=== PATIENT | male | born 1950 | race Caucasian/White ===

== ENCOUNTER 2017-01-06 18:08 | Inpatient (IN) | payer OTHER, MEDICAID ==
[~2017-01-06] VITALS: Ht 170.2 cm; Wt 86.6 kg
[~2017-01-06 18:08] MED LIST: IOHEXOL-300 100 ML BOTTLE ONE; SODIUM CHLORIDE 0.9% 10ML VIAL ONE
[2017-01-06 19:37] LABS: HEMATOCRIT. 35.6 % (42.0-52.0); HEMOGLOBIN. 11.1 g/dL (14.0-18.0); MEAN CORPUSCULAR HEMOGLOBIN 26.2 pg (28.0-32.0); MEAN CORPUSCULAR HGB CONC 31.1 g/dL (31.0-37.0); MEAN CORPUSCULAR VOLUME 84.3 fL (80.0-94.0); MEAN PLATELET VOLUME 10.7 fl (7.4-10.4); PLATELET 203 x1000/uL (130-400); RED BLOOD CELL COUNT 4.23 mill/uL (4.7-6.1); RED CELL DISTRIBUTION WIDTH 17.2 % (11.6-14.6); WHITE BLOOD COUNT 10.2 x1000/uL (4.5-11.0)
[2017-01-06 19:38] LABS: DIFFERENTIAL COMMENT 1
[2017-01-06 19:43] LABS: ALBUMIN 3.7 g/dL (3.4-5.0); ANION GAP 18; CARBON DIOXIDE 21 mEq/L (21-32); CHLORIDE 104 mEq/L (98-107); INDEX HEMOLYSI 1 (1-3); INDEX ICTERIC 1 (1-4); INDEX LIPEMIC 1 (1-3); INR 2.7; PARTIAL THROMBOPLASTIN TIME 32.4 sec (24.0-34.0); PROTHROMBIN TIME 27.9 sec; UREA NITROGEN BLOOD 42 mg/dL (7-21)
[2017-01-06 19:51] LABS: ALANINE AMINOTRANSFERASE 126 IU/L (13-61); NT PRO B-TYPE NATRIURETIC PEP 7020 pg/mL (5-125); eGFR 47 mL/min (>60)
[2017-01-06 19:54] LABS: LACTIC ACID 4.5 mmol/L (0.4-2.0); TROPONIN I 0.44 ng/mL (0.00-0.04)
[2017-01-06] MEDS ORDERED: SODIUM CHLORIDE 0.9% 1,000 ML IV ONE (20:06)
[2017-01-06] MEDS ORDERED: PIPERACILLIN/TAZ 3.375G PREMIX 50 ML IV ONE (20:15)
[2017-01-06] MEDS ORDERED: ASPIRIN 325MG EC TABLET PO ONE (20:15)
[2017-01-06] MEDS ORDERED: VANCOMYCIN 1 G PREMIX 200 ML IV SCH (20:15)
[2017-01-06 20:19] LABS: PLATELET ESTIMATE NORMAL
[2017-01-06 20:28] LABS: BG CARBOXYHEMOGLOBIN 0.1 % (0.5-1.5); BG DEOXYHEMOGLOBIN 2.6 % (0.0-5.0); BG FRACTION INSPIRED OXYGEN 21; BG METHEMOGLOBIN 0.4 % (0.0-1.5); BG OXYGEN SATURATION 97.4 % (92.0-98.5); BG OXYHEMOGLOBIN 96.9 % (94.0-97.0); BG PCO2 28.1 mmHg (35.0-45.0); BG PH 7.373 (7.350-7.450); BG PO2 103.4 mmHg (75.0-100.0); BG SAMPLE SITE RIGHT RADIAL; BG TOTAL HEMOGLOBIN 11.3 g/dL (12.0-18.0); BG VENT MODE ROOM AIR
[2017-01-07] VITALS (8 sets, daily range): BP systolic 96–127; BP diastolic 65–98
[2017-01-07] MEDS ORDERED: ATOR80TA76 PO (00:14)
[2017-01-07] MEDS ORDERED: RIVA20TA PO (00:14)
[2017-01-07] MEDS ORDERED: METF10002 PO (00:14)
[2017-01-07] MEDS ORDERED: METO50TA5 PO (00:14)
[2017-01-07] MEDS ORDERED: SPIR25TA4 PO (00:14)
[2017-01-07] MEDS ORDERED: ASPI-1035 PO (00:14)
[2017-01-07] MEDS ORDERED: DOCU-150 PO (00:14)
[2017-01-07] MEDS ORDERED: LISI40TA4 PO (00:14)
[2017-01-07] MEDS ORDERED: CLOP75TA33 PO (00:14)
[2017-01-07] MEDS ORDERED: PANT40TA4 PO (00:14)
[2017-01-07] MEDS ORDERED: DEXTROSE 50% WATER 50ML SYRINGE IV PRN (02:30)
[2017-01-07] MEDS: PANTOPRAZOLE 40MG DR TABLET PO SCH ×2 (06:35→11:02)
[2017-01-07] MEDS: BLOOD SUGAR DIAGNOSTIC STRIP TEST SCH ×4 (06:35→21:06)
[2017-01-07 06:46] LABS: HEMOGLOBIN. 9.8 g/dL (14.0-18.0); MEAN CORPUSCULAR HEMOGLOBIN 26.1 pg (28.0-32.0); MEAN CORPUSCULAR HGB CONC 31.5 g/dL (31.0-37.0); MEAN CORPUSCULAR VOLUME 82.9 fL (80.0-94.0); MEAN PLATELET VOLUME 10.6 fl (7.4-10.4); PLATELET 168 x1000/uL (130-400); RED BLOOD CELL COUNT 3.74 mill/uL (4.7-6.1); WHITE BLOOD COUNT 10.9 x1000/uL (4.5-11.0)
[2017-01-07 06:59] LABS: DIFFERENTIAL COMMENT 1
[2017-01-07 07:20] LABS: CALCIUM 8.5 mg/dL (8.5-10.1); CREATINE KINASE MB FRACTION 4.7 ng/mL (0.5-3.6); TROPONIN I 0.36 ng/mL (0.00-0.04)
[2017-01-07 07:49] LABS: PHOSPHORUS 2.7 mg/dL (2.5-4.9); THYROID STIMULATING HORMONE 0.54 uIU/mL (0.36-3.74); URIC ACID 7.5 mg/dL (2.6-7.2)
[2017-01-07] MEDS: INSULIN LISPRO 100 UNITS/ML SUBCUT SCH ×4 (07:50→21:00)
[2017-01-07 08:17] LABS: HEPATITIS B SURFACE ANTIGEN NEGATIVE
[2017-01-07 08:45] LABS: HEPATITIS C VIR.AB 0.17 INDEXVAL (0.00-0.80)
[2017-01-07 08:46] LABS: HEPATITIS B CORE AB IGM NEGATIVE
[2017-01-07 08:47] LABS: HEPATITIS A AB IGM NEGATIVE (NEGATIVE)
[2017-01-07 09:44] LABS: CLARITY URINE CLEAR (CLEAR); COLOR URINE YELLOW (YELLOW); GLUCOSE URINE NEGATIVE (NEGATIVE); KETONES URINE NEGATIVE (NEGATIVE); LEUKOCYTE ESTERASE URINE NEGATIVE (NEGATIVE); NITRITE URINE NEGATIVE (NEGATIVE); OCCULT BLOOD URINE NEGATIVE (NEGATIVE); PH URINE 5.5 (4.5-8.0); PROTEIN URINE TRACE (NEGATIVE); SPECIFIC GRAVITY URINE 1.025 (1.005-1.030)
[2017-01-07 10:02] LABS: SQUAMOUS EPITHELIAL CELL URINE RARE /lpf (RARE/1+)
[2017-01-07 10:03] LABS: MUCUS URINE 1+ /lpf (NONE/TRACE); URIC ACID CRYSTALS URINE 2+ /lpf
[2017-01-07 10:04] LABS: HYALINE CASTS URINE 0-5 /lpf
[2017-01-07 10:05] LABS: BACTERIA URINE TRACE; RBC URINE 0-2 /hpf (0-2); WBC URINE NONE SEEN /hpf (0-2)
[2017-01-07] MEDS: DOCUSATE SODIUM 100MG CAPSULE PO SCH (11:02)
[2017-01-07] MEDS: CLOPIDOGREL 75MG TABLET PO SCH (11:03)
[2017-01-07] MEDS: LISINOPRIL 40MG TABLET PO SCH (11:03)
[2017-01-07] MEDS: RIVAROXABAN 20 MG TABLET PO SCH (11:03)
[2017-01-07] MEDS: ASPIRIN 81MG EC TABLET PO SCH (11:03)
[2017-01-07] MEDS: METOPROLOL TARTRATE 50MG TABLET PO SCH ×2 (11:03→21:07)
[2017-01-07 13:07] LABS: ANISOCYTOSIS 1+; PLATELET ESTIMATE NORMAL
[2017-01-07 16:00] LABS: INR 2.3
[2017-01-07] MEDS ORDERED: SODIUM CHLORIDE 0.45% 1,000 ML IV SCH (18:15)
[2017-01-07] MEDS: ATORVASTATIN CALCIUM 40MG TABLET PO SCH (21:07)
[2017-01-07 22:57] LABS: TROPONIN I 0.39 ng/mL (0.00-0.04)
[2017-01-08] VITALS (7 sets, daily range): BP systolic 102–140; BP diastolic 64–100
[2017-01-08] MEDS: BLOOD SUGAR DIAGNOSTIC STRIP TEST SCH ×4 (06:28→21:12)
[2017-01-08 07:07] LABS: HEMATOCRIT. 31.3 % (42.0-52.0); HEMOGLOBIN. 9.9 g/dL (14.0-18.0); MEAN CORPUSCULAR HEMOGLOBIN 26.1 pg (28.0-32.0); MEAN CORPUSCULAR HGB CONC 31.5 g/dL (31.0-37.0); MEAN CORPUSCULAR VOLUME 82.8 fL (80.0-94.0); MEAN PLATELET VOLUME 10.5 fl (7.4-10.4); PLATELET 169 x1000/uL (130-400); RED BLOOD CELL COUNT 3.78 mill/uL (4.7-6.1); WHITE BLOOD COUNT 9.1 x1000/uL (4.5-11.0)
[2017-01-08 07:14] LABS: DIFFERENTIAL COMMENT 1
[2017-01-08 07:31] LABS: ANION GAP 14; CALCIUM 8.4 mg/dL (8.5-10.1); CARBON DIOXIDE 20 mEq/L (21-32); CHLORIDE 106 mEq/L (98-107); INDEX HEMOLYSI 1 (1-3); INDEX ICTERIC 1 (1-4); INDEX LIPEMIC 1 (1-3); UREA NITROGEN BLOOD 34 mg/dL (7-21)
[2017-01-08 07:39] LABS: CREATINE KINASE MB FRACTION 4.7 ng/mL (0.5-3.6); TROPONIN I 0.38 ng/mL (0.00-0.04); eGFR > 60 mL/min (>60)
[2017-01-08 08:13] LABS: PLATELET ESTIMATE NORMAL
[2017-01-08 08:14] LABS: ANISOCYTOSIS 2+; HYPOCHROMASIA 1+
[2017-01-08] MEDS: RIVAROXABAN 20 MG TABLET PO SCH (08:42)
[2017-01-08] MEDS: LISINOPRIL 40MG TABLET PO SCH (08:42)
[2017-01-08] MEDS: DOCUSATE SODIUM 100MG CAPSULE PO SCH (08:42)
[2017-01-08] MEDS: METOPROLOL TARTRATE 50MG TABLET PO SCH ×2 (08:43→21:08)
[2017-01-08] MEDS: ASPIRIN 81MG EC TABLET PO SCH (08:43)
[2017-01-08] MEDS: CLOPIDOGREL 75MG TABLET PO SCH (08:43)
[2017-01-08] MEDS: INSULIN LISPRO 100 UNITS/ML SUBCUT SCH ×4 (08:44→21:09)
[2017-01-08] MEDS ORDERED: REGADENOSON 0.4 MG/5 ML IV NR (12:30)
[2017-01-08] MEDS: SODIUM CHL 0.45% + KCL 20MEQ/L 1,000 ML IV SCH ×2 (15:04→21:11)
[2017-01-08] MEDS: LEVOFLOXACIN 500MG PREMIX 100 ML IV SCH (15:04)
[2017-01-08] MEDS: METRONIDAZOLE 500 MG PREMIX 100 ML IV SCH ×2 (15:14→21:07)
[2017-01-08 16:57] LABS: AMMONIA 50 uMol/L (<32); INDEX HEMOLYSI 1 (1-3)
[2017-01-08] MEDS: IPRATROPIUM/ALBUTEROL 0.5-3(2.5)MG/3ML NEB HHN SCH (20:10)
[2017-01-08] MEDS: ATORVASTATIN CALCIUM 40MG TABLET PO SCH (21:05)
[2017-01-09] VITALS: BP 115/80
[2017-01-09 04:00] VITALS: BP 118/89
[2017-01-09] MEDS: IPRATROPIUM/ALBUTEROL 0.5-3(2.5)MG/3ML NEB HHN SCH ×4 (04:29→22:00)
[2017-01-09] MEDS: METRONIDAZOLE 500 MG PREMIX 100 ML IV SCH ×3 (06:42→21:58)
[2017-01-09] MEDS: PANTOPRAZOLE 40MG DR TABLET PO SCH (06:42)
[2017-01-09 06:44] LABS: HEMATOCRIT. 32.7 % (42.0-52.0); HEMOGLOBIN. 10.4 g/dL (14.0-18.0); MEAN CORPUSCULAR HEMOGLOBIN 26.3 pg (28.0-32.0); MEAN CORPUSCULAR HGB CONC 31.8 g/dL (31.0-37.0); MEAN CORPUSCULAR VOLUME 82.6 fL (80.0-94.0); PLATELET 179 x1000/uL (130-400); RED BLOOD CELL COUNT 3.96 mill/uL (4.7-6.1); RED CELL DISTRIBUTION WIDTH 17.5 % (11.6-14.6)
[2017-01-09 07:10] LABS: DIFFERENTIAL COMMENT 1
[2017-01-09] MEDS: BLOOD SUGAR DIAGNOSTIC STRIP TEST SCH ×4 (07:20→21:00)
[2017-01-09 07:44] LABS: ALANINE AMINOTRANSFERASE 334 IU/L (13-61); ALBUMIN 3.3 g/dL (3.4-5.0); ANION GAP 13; CALCIUM 8.7 mg/dL (8.5-10.1); CARBON DIOXIDE 21 mEq/L (21-32); CHLORIDE 108 mEq/L (98-107); INDEX HEMOLYSI 1 (1-3); INDEX ICTERIC 1 (1-4); INDEX LIPEMIC 1 (1-3); UREA NITROGEN BLOOD 24 mg/dL (7-21); eGFR > 60 mL/min (>60)
[2017-01-09] MEDS: INSULIN LISPRO 100 UNITS/ML SUBCUT SCH ×4 (07:50→21:00)
[2017-01-09] MEDS ORDERED: REGADENOSON 0.4 MG/5 ML IV ONE (07:52)
[2017-01-09] MEDS: DOCUSATE SODIUM 100MG CAPSULE PO SCH (09:23)
[2017-01-09] MEDS: METOPROLOL TARTRATE 50MG TABLET PO SCH ×2 (09:23→21:58)
[2017-01-09] MEDS: CLOPIDOGREL 75MG TABLET PO SCH (09:24)
[2017-01-09] MEDS: LISINOPRIL 40MG TABLET PO SCH (09:24)
[2017-01-09] MEDS: RIVAROXABAN 20 MG TABLET PO SCH (09:24)
[2017-01-09] MEDS: ASPIRIN 81MG EC TABLET PO SCH (09:24)
[2017-01-09] MEDS: LEVOFLOXACIN 500MG PREMIX 100 ML IV SCH (11:47)
[2017-01-09 12:31] LABS: AMYLASE 34 IU/L (25-115); INDEX HEMOLYSI 1 (1-3); LIPASE 177 IU/L (73-393)
[2017-01-09 12:32] LABS: AMMONIA 26 uMol/L (<32); INDEX HEMOLYSI 3 (1-3)
[2017-01-09 13:34] LABS: PLATELET ESTIMATE NORMAL
[2017-01-09] MEDS ORDERED: DIATR MEGLU/DIATRIZOATE SOLN 30ML PO NR (15:15)
[2017-01-09] MEDS: LACTULOSE 20G/30ML UDC PO SCH ×2 (15:19→21:58)
[2017-01-09] MEDS: SODIUM CHL 0.45% + KCL 20MEQ/L 1,000 ML IV SCH (15:20)
[2017-01-09 16:00] VITALS: BP_SYST 120; BP_SYST 125; BP_DIAS 100; BP_DIAS 89
[2017-01-09 20:00] VITALS: BP 110/60
[2017-01-10] VITALS: BP 104/76
[2017-01-10] MEDS: IPRATROPIUM/ALBUTEROL 0.5-3(2.5)MG/3ML NEB HHN SCH ×3 (02:23→21:18)
[2017-01-10 04:00] VITALS: BP 97/70
[2017-01-10 05:45] LABS: HEMATOCRIT. 33.3 % (42.0-52.0); HEMOGLOBIN. 10.5 g/dL (14.0-18.0); MEAN CORPUSCULAR HEMOGLOBIN 26.1 pg (28.0-32.0); MEAN CORPUSCULAR HGB CONC 31.6 g/dL (31.0-37.0); MEAN CORPUSCULAR VOLUME 82.7 fL (80.0-94.0); MEAN PLATELET VOLUME 11.3 fl (7.4-10.4); PLATELET 214 x1000/uL (130-400); RED BLOOD CELL COUNT 4.03 mill/uL (4.7-6.1); WHITE BLOOD COUNT 10.2 x1000/uL (4.5-11.0)
[2017-01-10] MEDS: LACTULOSE 20G/30ML UDC PO SCH ×4 (05:54→22:23)
[2017-01-10] MEDS: SODIUM CHL 0.45% + KCL 20MEQ/L 1,000 ML IV SCH (05:55)
[2017-01-10] MEDS: METRONIDAZOLE 500 MG PREMIX 100 ML IV SCH ×3 (05:55→22:18)
[2017-01-10] MEDS: PANTOPRAZOLE 40MG DR TABLET PO SCH (06:00)
[2017-01-10 06:26] LABS: AMMONIA 54 uMol/L (<32); INDEX HEMOLYSI 1 (1-3)
[2017-01-10 06:33] LABS: DIFFERENTIAL COMMENT 1
[2017-01-10] MEDS: BLOOD SUGAR DIAGNOSTIC STRIP TEST SCH ×4 (07:20→21:00)
[2017-01-10] MEDS: INSULIN LISPRO 100 UNITS/ML SUBCUT SCH ×4 (07:50→22:19)
[2017-01-10 07:55] LABS: CHLORIDE 105 mEq/L (98-107); INDEX HEMOLYSI 1 (1-3); INDEX ICTERIC 1 (1-4); INDEX LIPEMIC 1 (1-3)
[2017-01-10 08:00] VITALS: BP_SYST 119; BP_SYST 126; BP_SYST 129; BP_DIAS 102; BP_DIAS 84; BP_DIAS 99
[2017-01-10 08:06] LABS: ALANINE AMINOTRANSFERASE 705 IU/L (13-61); ALBUMIN 3.4 g/dL (3.4-5.0); ANION GAP 17; CARBON DIOXIDE 19 mEq/L (21-32); UREA NITROGEN BLOOD 22 mg/dL (7-21); eGFR > 60 mL/min (>60)
[2017-01-10] MEDS ORDERED: DILTIAZEM HCL 5MG/ML 5ML VIAL IV SCH (09:00)
[2017-01-10] MEDS ORDERED: DIGOXIN 500MCG/2ML AMP IV SCH (09:00)
[2017-01-10] MEDS ORDERED: FUROSEMIDE 40MG/4ML VIAL IVP NR (09:15)
[2017-01-10] MEDS: CLOPIDOGREL 75MG TABLET PO SCH (09:20)
[2017-01-10] MEDS: LISINOPRIL 40MG TABLET PO SCH (09:21)
[2017-01-10] MEDS: ASPIRIN 81MG EC TABLET PO SCH (09:22)
[2017-01-10] MEDS: DOCUSATE SODIUM 100MG CAPSULE PO SCH (09:23)
[2017-01-10] MEDS: RIVAROXABAN 10 MG TABLET PO SCH (09:25)
[2017-01-10] MEDS ORDERED: DIGOXIN 500MCG/2ML AMP IV NR ×3 (10:45→23:00)
[2017-01-10] MEDS ORDERED: POTASSIUM CHLORIDE 10MEQ TABLET SR PO NR (11:00)
[2017-01-10 12:00] VITALS: BP 128/82
[2017-01-10] MEDS: LEVOFLOXACIN 500MG PREMIX 100 ML IV SCH (13:07)
[2017-01-10] MEDS: DILTIAZEM HCL 60MG TABLET PO SCH ×2 (15:06→22:20)
[2017-01-10 16:00] VITALS: BP 124/78
[2017-01-10 20:00] VITALS: BP_SYST 105; BP_SYST 119; BP_SYST 121; BP_DIAS 101; BP_DIAS 51; BP_DIAS 81
[2017-01-10] MEDS ORDERED: METOPROLOL TARTRATE 50MG TABLET PO SCH (21:00)
[2017-01-10] MEDS: CARVEDILOL 12.5MG TABLET PO SCH (22:23)
[2017-01-11] VITALS: BP_SYST 108; BP_SYST 115; BP_SYST 125; BP_DIAS 74; BP_DIAS 76; BP_DIAS 95
[2017-01-11] MEDS: IPRATROPIUM/ALBUTEROL 0.5-3(2.5)MG/3ML NEB HHN SCH ×2 (01:52→13:15)
[2017-01-11 04:00] VITALS: BP_SYST 108; BP_SYST 110; BP_SYST 118; BP_DIAS 60; BP_DIAS 80; BP_DIAS 90
[2017-01-11] MEDS: LACTULOSE 20G/30ML UDC PO SCH ×2 (06:00→14:19)
[2017-01-11] MEDS: PANTOPRAZOLE 40MG DR TABLET PO SCH (06:18)
[2017-01-11] MEDS: DILTIAZEM HCL 60MG TABLET PO SCH (06:18)
[2017-01-11] MEDS: METRONIDAZOLE 500MG TABLET PO SCH ×2 (06:18→14:20)
[2017-01-11] MEDS: BLOOD SUGAR DIAGNOSTIC STRIP TEST SCH ×2 (06:21→12:20)
[2017-01-11 07:21] LABS: HEMATOCRIT. 31.9 % (42.0-52.0); HEMOGLOBIN. 10.2 g/dL (14.0-18.0); MEAN CORPUSCULAR HEMOGLOBIN 25.7 pg (28.0-32.0); MEAN CORPUSCULAR VOLUME 80.3 fL (80.0-94.0); MEAN PLATELET VOLUME 10.2 fl (7.4-10.4); PLATELET 174 x1000/uL (130-400); RED BLOOD CELL COUNT 3.97 mill/uL (4.7-6.1); RED CELL DISTRIBUTION WIDTH 16.7 % (11.6-14.6); WHITE BLOOD COUNT 7.9 x1000/uL (4.5-11.0)
[2017-01-11] MEDS: INSULIN LISPRO 100 UNITS/ML SUBCUT SCH ×2 (07:29→14:21)
[2017-01-11 07:33] LABS: ANION GAP 13; CALCIUM 8.4 mg/dL (8.5-10.1); CARBON DIOXIDE 26 mEq/L (21-32); CHLORIDE 105 mEq/L (98-107); INDEX HEMOLYSI 1 (1-3); INDEX ICTERIC 1 (1-4); INDEX LIPEMIC 1 (1-3); MAGNESIUM 1.7 mg/dL (1.8-2.4); UREA NITROGEN BLOOD 17 mg/dL (7-21); eGFR > 60 mL/min (>60)
[2017-01-11 07:58] LABS: DIFFERENTIAL COMMENT 1
[2017-01-11 08:00] VITALS: BP 113/75
[2017-01-11 08:18] LABS: ANISOCYTOSIS 2+; GIANT PLATELETS 1+; PLATELET ESTIMATE NORMAL
[2017-01-11] MEDS ORDERED: POTASSIUM CHLORIDE INJ 40 MEQ in DEXT 5% WATER 250 ML IV SCH (09:00)
[2017-01-11] MEDS ORDERED: LISINOPRIL 10MG TABLET PO SCH (09:00)
[2017-01-11] MEDS ORDERED: MAGNESIUM 2 G PREMIX 50 ML IV SCH (09:00)
[2017-01-11] MEDS: ASPIRIN 81MG EC TABLET PO SCH (10:22)
[2017-01-11] MEDS: DOCUSATE SODIUM 100MG CAPSULE PO SCH (10:22)
[2017-01-11] MEDS: RIVAROXABAN 10 MG TABLET PO SCH (10:22)
[2017-01-11] MEDS: CARVEDILOL 12.5MG TABLET PO SCH (10:23)
[2017-01-11] MEDS: CLOPIDOGREL 75MG TABLET PO SCH (10:23)
[2017-01-11 10:32] LABS: BILIRUBIN DIRECT 0.4 mg/dL (0.0-0.2)
[2017-01-11] MEDS ORDERED: LEVOFLOXACIN 500MG TABLET PO SCH (11:00)
[2017-01-11 12:00] VITALS: BP 115/73
[2017-01-11] MEDS ORDERED: DILTIAZEM HCL 90MG TABLET PO SCH (14:00)
[2017-01-11 15:42] LABS: MAGNESIUM 2.1 mg/dL (1.8-2.4)
[2017-01-11 16:00] VITALS: BP 120/78
[2017-01-11 17:12] VITALS: BP 120/78
== END 2017-01-11 18:38 | disposition home or self-care (01) | DRG 871 ==
LOC: ER 19:50 → 6WST 22:05
PROVIDERS: ADMIT Internal Medicine Geriatric Medicine; ATTEND Internal Medicine Geriatric Medicine
DX: A41.9 Sepsis, unspecified organism (principal); N17.0 Acute kidney failure with tubular necrosis; J18.9 Pneumonia, unspecified organism; D68.9 Coagulation defect, unspecified; E44.1 Mild protein-calorie malnutrition; I42.0 Dilated cardiomyopathy; I11.0 Hypertensive heart disease with heart failure; D63.8 Anemia in other chronic diseases classified elsewhere; R74.0 Nonspecific elevation of levels of transaminase and lactic acid dehydrogenase [LDH]; E78.00 Pure hypercholesterolemia, unspecified; E78.5 Hyperlipidemia, unspecified; E83.42 Hypomagnesemia; E87.6 Hypokalemia; I25.119 Atherosclerotic heart disease of native coronary artery with unspecified angina pectoris; I25.5 Ischemic cardiomyopathy; I27.2 Other secondary pulmonary hypertension; I45.10 Unspecified right bundle-branch block; K76.0 Fatty (change of) liver, not elsewhere classified; K80.20 Calculus of gallbladder without cholecystitis without obstruction; I95.9 Hypotension, unspecified; E86.0 Dehydration; E11.69 Type 2 diabetes mellitus with other specified complication; I48.2 Chronic atrial fibrillation; I49.5 Sick sinus syndrome; Z82.49 Family history of ischemic heart disease and other diseases of the circulatory system; Z79.01 Long term (current) use of anticoagulants; Z95.810 Presence of automatic (implantable) cardiac defibrillator; Z79.84 Long term (current) use of oral hypoglycemic drugs; Z79.899 Other long term (current) drug therapy; Z68.29 Body mass index [BMI] 29.0-29.9, adult
CPT/HCPCS: 36415; 36600; 71010; 74177; 76700; 78227; 78452; 80048; 80053; 80061; 80076; 80162; 80202; 81001; 82140; 82150; 82270; 82375; 82550; 82553; 82805; 82962; 83036; 83605; 83690; 83735; 83880; 84100; 84132; 84443; 84484; 84550; 85025; 85610; 85730; 86705; 86709; 86803; 87040; 87086; 87340; 93005; 93017; 93306; 93970; 94640; 94664; 96365; 96367; 97161; 99285; A4216; A9500; A9537; J1160; J1815; J1940; J1956; J2543; J2785; J3370; J3475; J3480; J3490; J7030; J7040; J7060; J7620; Q9963; Q9967

== ENCOUNTER 2018-06-08 19:57 | Inpatient (IN) | payer OTHER, MEDICAID ==
[~2018-06-08] VITALS: Ht 167.6 cm; Wt 67.6 kg
[~2018-06-08 19:57] MED LIST changes: +ASPI-1159 PO; +ATOR-2 PO; +CLOP75TA33 PO; +DOCU-150 PO; -IOHEXOL-300 100 ML BOTTLE ONE; +LISI40TA4 PO; +METF-416 PO; +METO-539 PO; +PANT40TA4 PO; +RIVA20TA PO; -SODIUM CHLORIDE 0.9% 10ML VIAL ONE; +SPIR25TA6 PO
[2018-06-08 21:36] LABS: BASOPHILS % 1.1 % (0.0-2.0); HEMATOCRIT. 42.6 % (42.0-52.0); HEMOGLOBIN. 13.6 g/dL (14.0-18.0); LYMPHOCYTES % 13.7 % (20.0-50.0); MEAN CORPUSCULAR HEMOGLOBIN 28.1 pg (28.0-32.0); MEAN CORPUSCULAR VOLUME 88.3 fL (80.0-94.0); MEAN PLATELET VOLUME 10.5 fl (7.4-10.4); MONOCYTES % 13.4 % (2.0-8.0); NEUTROPHILS % 69.8 % (40.0-76.0); PLATELET 158 x1000/uL (130-400); RED BLOOD CELL COUNT 4.83 mill/uL (4.7-6.1); RED CELL DISTRIBUTION WIDTH 17.4 % (11.6-14.6)
[2018-06-08 21:42] LABS: CHLORIDE 108 mEq/L (98-107)
[2018-06-08 22:45] VITALS: BP 124/88
[2018-06-08] MEDS ORDERED: ONDANSETRON HCL 4MG/2ML INJ IV PRN (23:00)
[2018-06-08] MEDS ORDERED: CLONIDINE 0.1MG TABLET PO PRN (23:00)
[2018-06-08] MEDS ORDERED: ACETAMINOPHEN 325MG TABLET PO PRN (23:00)
[2018-06-08] MEDS ORDERED: DOCUSATE SODIUM 100MG CAPSULE PO PRN (23:00)
[2018-06-08] MEDS ORDERED: IPRATROPIUM/ALBUTEROL 0.5-3(2.5)MG/3ML NEB INH PRN (23:00)
[2018-06-08] MEDS ORDERED: MAGNESIUM/ALUMINUM HYDROXIDE/SIMETHICONE 30ML UDC PO PRN (23:00)
[2018-06-08] MEDS ORDERED: HYDROCODONE/ACETAMINOPHEN 5/325MG TABLET PO PRN (23:00)
[2018-06-08 23:30] VITALS: BP 124/88
[2018-06-08] MEDS ORDERED: DEXTROSE 50% WATER 50ML SYRINGE IV PRN (23:30)
[2018-06-09] MEDS ORDERED: ASPIRIN 325MG EC TABLET PO NR (00:15)
[2018-06-09 04:00] VITALS: BP 133/89
[2018-06-09 06:19] LABS: BASOPHILS % 0.7 % (0.0-2.0); EOSINOPHILS % 1.8 % (0.0-5.0); HEMATOCRIT. 40.4 % (42.0-52.0); HEMOGLOBIN. 13.3 g/dL (14.0-18.0); LYMPHOCYTES % 21.1 % (20.0-50.0); MEAN CORPUSCULAR HEMOGLOBIN 28.7 pg (28.0-32.0); MEAN CORPUSCULAR VOLUME 87.2 fL (80.0-94.0); MEAN PLATELET VOLUME 11.1 fl (7.4-10.4); MONOCYTES % 14.1 % (2.0-8.0); NEUTROPHILS % 62.3 % (40.0-76.0); PLATELET 150 x1000/uL (130-400); RED BLOOD CELL COUNT 4.64 mill/uL (4.7-6.1)
[2018-06-09] MEDS: BLOOD SUGAR DIAGNOSTIC STRIP TEST SCH ×4 (06:26→21:52)
[2018-06-09] MEDS: INSULIN LISPRO 100 UNITS/ML SUBCUT SCH ×4 (06:26→21:51)
[2018-06-09 06:59] LABS: CREATINE KINASE MB FRACTION 8.7 ng/mL (0.5-3.6)
[2018-06-09 08:00] VITALS: BP 142/92
[2018-06-09] MEDS: FUROSEMIDE 40MG/4ML VIAL IV SCH ×2 (08:42→18:26)
[2018-06-09 12:00] VITALS: BP 140/80
[2018-06-09] MEDS: ASPIRIN 81MG TABLET PO SCH (13:45)
[2018-06-09 15:22] LABS: CREATINE KINASE MB FRACTION 5.7 ng/mL (0.5-3.6)
[2018-06-09 16:00] VITALS: BP 126/76
[2018-06-09 16:21] LABS: *BARBITURATES SCREEN URINE NEGATIVE (NEGATIVE); CANNABINOID URINE SCREEN NEGATIVE (NEGATIVE); METHADONE URINE SCREEN NEGATIVE (NEGATIVE); OPIATES URINE SCREEN NEGATIVE (NEGATIVE); PHENCYCLIDINE URINE SCREEN NEGATIVE (NEGATIVE)
[2018-06-09 16:22] LABS: *AMPHETAMINES SCREEN URINE NEGATIVE (NEGATIVE); *BENZODIAZEPINES SCREEN URINE NEGATIVE (NEGATIVE); *COCAINE SCREEN URINE NEGATIVE (NEGATIVE)
[2018-06-09] MEDS ORDERED: RIVAROXABAN 10 MG TABLET PO SCH (17:00)
[2018-06-09] MEDS: ENOXAPARIN 40MG/0.4ML SYR SUBCUT SCH (18:27)
[2018-06-09 20:00] VITALS: BP 126/77
[2018-06-09] MEDS: CARVEDILOL 3.125 MG TABLET PO SCH (21:51)
[2018-06-09] MEDS: ATORVASTATIN CALCIUM 40MG TABLET PO SCH (21:52)
[2018-06-10] VITALS: BP 120/77
[2018-06-10 04:00] VITALS: BP 131/84
[2018-06-10] MEDS: BLOOD SUGAR DIAGNOSTIC STRIP TEST SCH ×4 (06:19→21:07)
[2018-06-10] MEDS: OMEPRAZOLE 20MG CAPSULE EXTENDED RELEASE PO SCH (06:28)
[2018-06-10] MEDS: INSULIN LISPRO 100 UNITS/ML SUBCUT SCH ×4 (06:29→21:07)
[2018-06-10 06:56] LABS: HEMATOCRIT 44.7 % (42.0-52.0); MEAN CORPUSCULAR HEMOGLOBIN 28.8 pg (28.0-32.0); MEAN CORPUSCULAR VOLUME 86.3 fL (80.0-94.0); PLATELET 178 x1000/uL (130-400); RED BLOOD CELL COUNT 5.18 mill/uL (4.7-6.1); RED CELL DISTRIBUTION WIDTH 16.7 % (11.6-14.6)
[2018-06-10 08:00] VITALS: BP 140/79
[2018-06-10] MEDS: CARVEDILOL 3.125 MG TABLET PO SCH ×2 (09:15→21:06)
[2018-06-10] MEDS: CLOPIDOGREL 75MG TABLET PO SCH (09:15)
[2018-06-10] MEDS: LISINOPRIL 40MG TABLET PO SCH (09:16)
[2018-06-10] MEDS: FUROSEMIDE 40MG/4ML VIAL IV SCH ×2 (09:16→17:00)
[2018-06-10] MEDS: ASPIRIN 81MG TABLET PO SCH (09:16)
[2018-06-10] MEDS ORDERED: POTASSIUM CHLORIDE 20MEQ TABLET SR PO NR (11:00)
[2018-06-10 12:00] VITALS: BP 116/68
[2018-06-10 16:00] VITALS: BP 94/61
[2018-06-10] MEDS: ENOXAPARIN 40MG/0.4ML SYR SUBCUT SCH (17:44)
[2018-06-10 20:00] VITALS: BP 126/66
[2018-06-10] MEDS: ATORVASTATIN CALCIUM 40MG TABLET PO SCH (21:06)
[2018-06-11] VITALS: BP 90/64
[2018-06-11 04:00] VITALS: BP 134/68
[2018-06-11] MEDS: BLOOD SUGAR DIAGNOSTIC STRIP TEST SCH ×4 (05:59→21:00)
[2018-06-11] MEDS: OMEPRAZOLE 20MG CAPSULE EXTENDED RELEASE PO SCH (06:17)
[2018-06-11] MEDS: INSULIN LISPRO 100 UNITS/ML SUBCUT SCH ×4 (06:17→22:02)
[2018-06-11 06:38] LABS: HEMATOCRIT 45.4 % (42.0-52.0); MEAN CORPUSCULAR HEMOGLOBIN 28.5 pg (28.0-32.0); PLATELET 195 x1000/uL (130-400); RED BLOOD CELL COUNT 5.27 mill/uL (4.7-6.1); RED CELL DISTRIBUTION WIDTH 16.4 % (11.6-14.6)
[2018-06-11 08:00] VITALS: BP 104/62
[2018-06-11] MEDS: ASPIRIN 81MG TABLET PO SCH (08:08)
[2018-06-11] MEDS: FUROSEMIDE 40MG/4ML VIAL IV SCH ×2 (08:08→17:31)
[2018-06-11] MEDS: CLOPIDOGREL 75MG TABLET PO SCH (08:08)
[2018-06-11] MEDS ORDERED: POTASSIUM CHLORIDE 20MEQ/PACKET PO NR ×2 (08:15→20:00)
[2018-06-11] MEDS: CARVEDILOL 3.125 MG TABLET PO SCH ×2 (09:00→20:39)
[2018-06-11] MEDS: LISINOPRIL 40MG TABLET PO SCH (09:00)
[2018-06-11 12:00] VITALS: BP 107/74
[2018-06-11 16:00] VITALS: BP 107/78
[2018-06-11] MEDS: RIVAROXABAN 20 MG TABLET PO SCH (17:31)
[2018-06-11 20:00] VITALS: BP 105/71
[2018-06-11] MEDS: ATORVASTATIN CALCIUM 40MG TABLET PO SCH (20:38)
[2018-06-12 00:02] VITALS: BP 99/55
[2018-06-12] MEDS: CARVEDILOL 3.125 MG TABLET PO SCH ×2 (00:14→21:05)
[2018-06-12 04:00] VITALS: BP 113/47
[2018-06-12] MEDS: OMEPRAZOLE 20MG CAPSULE EXTENDED RELEASE PO SCH (05:42)
[2018-06-12] MEDS: INSULIN LISPRO 100 UNITS/ML SUBCUT SCH ×4 (06:33→21:35)
[2018-06-12] MEDS: BLOOD SUGAR DIAGNOSTIC STRIP TEST SCH ×4 (06:35→21:05)
[2018-06-12 07:03] LABS: BASOPHILS % 0.8 % (0.0-2.0); EOSINOPHILS % 3.6 % (0.0-5.0); HEMOGLOBIN. 16.3 g/dL (14.0-18.0); LYMPHOCYTES % 30.4 % (20.0-50.0); MEAN CORPUSCULAR HEMOGLOBIN 28.5 pg (28.0-32.0); MEAN CORPUSCULAR VOLUME 85.5 fL (80.0-94.0); MEAN PLATELET VOLUME 10.1 fl (7.4-10.4); MONOCYTES % 14.9 % (2.0-8.0); NEUTROPHILS % 50.3 % (40.0-76.0); PLATELET 199 x1000/uL (130-400); RED BLOOD CELL COUNT 5.73 mill/uL (4.7-6.1); RED CELL DISTRIBUTION WIDTH 16.4 % (11.6-14.6)
[2018-06-12 07:13] LABS: CHLORIDE 101 mEq/L (98-107)
[2018-06-12 08:00] VITALS: BP 93/62
[2018-06-12] MEDS: DILTIAZEM HCL 60MG TABLET PO SCH ×3 (08:00→21:05)
[2018-06-12] MEDS: LISINOPRIL 40MG TABLET PO SCH (08:54)
[2018-06-12] MEDS: FUROSEMIDE 40MG/4ML VIAL IV SCH (09:11)
[2018-06-12] MEDS: CLOPIDOGREL 75MG TABLET PO SCH (09:11)
[2018-06-12] MEDS: ASPIRIN 81MG TABLET PO SCH (09:12)
[2018-06-12] MEDS ORDERED: POTASSIUM CHLORIDE 20MEQ TABLET SR PO NR (10:45)
[2018-06-12 12:00] VITALS: BP 108/80
[2018-06-12] MEDS ORDERED: MAGNESIUM 1 G PREMIX 100 ML IV NR (12:00)
[2018-06-12] MEDS ORDERED: DIGOXIN 500MCG/2ML AMP IV NR ×2 (15:45→21:45)
[2018-06-12 16:00] VITALS: BP 132/84
[2018-06-12] MEDS: RIVAROXABAN 20 MG TABLET PO SCH (17:13)
[2018-06-12] MEDS ORDERED: XAR15 PO (19:29)
[2018-06-12] MEDS ORDERED: METF-414 PO (19:29)
[2018-06-12] MEDS ORDERED: ATOR40TA70 PO (19:29)
[2018-06-12] MEDS ORDERED: LISI-186 PO (19:29)
[2018-06-12] MEDS ORDERED: METO100T16 PO (19:29)
[2018-06-12] MEDS ORDERED: INSU100I13 SQ (19:31)
[2018-06-12 20:00] VITALS: BP 136/76
[2018-06-12] MEDS: ATORVASTATIN CALCIUM 40MG TABLET PO SCH (21:05)
[2018-06-13 00:26] VITALS: BP 102/61
[2018-06-13] MEDS ORDERED: DIGOXIN 500MCG/2ML AMP IV NR (03:45)
[2018-06-13 04:00] VITALS: BP 104/77
[2018-06-13] MEDS: DILTIAZEM HCL 60MG TABLET PO SCH ×2 (06:00→14:14)
[2018-06-13] MEDS: BLOOD SUGAR DIAGNOSTIC STRIP TEST SCH ×2 (06:01→12:33)
[2018-06-13] MEDS: OMEPRAZOLE 20MG CAPSULE EXTENDED RELEASE PO SCH (06:01)
[2018-06-13] MEDS: INSULIN LISPRO 100 UNITS/ML SUBCUT SCH ×2 (06:07→12:37)
[2018-06-13 07:18] LABS: BASOPHILS % 0.9 % (0.0-2.0); EOSINOPHILS % 4.1 % (0.0-5.0); HEMATOCRIT. 48.8 % (42.0-52.0); HEMOGLOBIN. 16.1 g/dL (14.0-18.0); LYMPHOCYTES % 34.3 % (20.0-50.0); MEAN CORPUSCULAR HEMOGLOBIN 28.1 pg (28.0-32.0); MEAN CORPUSCULAR VOLUME 85.2 fL (80.0-94.0); MEAN PLATELET VOLUME 10.3 fl (7.4-10.4); MONOCYTES % 11.8 % (2.0-8.0); NEUTROPHILS % 48.9 % (40.0-76.0); PLATELET 210 x1000/uL (130-400); RED BLOOD CELL COUNT 5.73 mill/uL (4.7-6.1); RED CELL DISTRIBUTION WIDTH 16.2 % (11.6-14.6)
[2018-06-13 08:00] VITALS: BP 117/69
[2018-06-13] MEDS: CARVEDILOL 3.125 MG TABLET PO SCH (08:44)
[2018-06-13] MEDS: ASPIRIN 81MG TABLET PO SCH (08:44)
[2018-06-13] MEDS ORDERED: COR3 PO (10:59)
[2018-06-13] MEDS ORDERED: OMEP20CA10 PO (10:59)
[2018-06-13] MEDS ORDERED: RIVA20TA PO (10:59)
[2018-06-13 11:14] LABS: CHLORIDE 101 mEq/L (98-107)
[2018-06-13 12:00] VITALS: BP 119/78
[2018-06-13 13:19] VITALS: BP 119/78
== END 2018-06-13 15:15 | disposition home or self-care (01) | DRG 314 ==
LOC: ER 19:57 → EDBEDREQTM 21:55 → EDBEDREQ 21:55 → ENRESERV 22:09 → 5WST 22:37
PROVIDERS: ADMIT Internal Medicine; ATTEND Internal Medicine
DX: T82.118A Breakdown (mechanical) of other cardiac electronic device, initial encounter (principal); I50.21 Acute systolic (congestive) heart failure; E44.1 Mild protein-calorie malnutrition; N17.9 Acute kidney failure, unspecified; I13.0 Hypertensive heart and chronic kidney disease with heart failure and stage 1 through stage 4 chronic kidney disease, or unspecified chronic kidney disease; I42.9 Cardiomyopathy, unspecified; I48.0 Paroxysmal atrial fibrillation; Z79.01 Long term (current) use of anticoagulants; K59.00 Constipation, unspecified; K30 Functional dyspepsia; I49.3 Ventricular premature depolarization; N18.9 Chronic kidney disease, unspecified; R74.8 Abnormal levels of other serum enzymes; Y83.8 Other surgical procedures as the cause of abnormal reaction of the patient, or of later complication, without mention of misadventure at the time of the procedure; I25.10 Atherosclerotic heart disease of native coronary artery without angina pectoris; E11.22 Type 2 diabetes mellitus with diabetic chronic kidney disease; E87.8 Other disorders of electrolyte and fluid balance, not elsewhere classified; E66.9 Obesity, unspecified; D64.9 Anemia, unspecified; E78.00 Pure hypercholesterolemia, unspecified; E78.5 Hyperlipidemia, unspecified; I25.2 Old myocardial infarction; Z79.82 Long term (current) use of aspirin; Z95.810 Presence of automatic (implantable) cardiac defibrillator; Z68.24 Body mass index [BMI] 24.0-24.9, adult; Z79.899 Other long term (current) drug therapy; Z79.84 Long term (current) use of oral hypoglycemic drugs; Y92.89 Other specified places as the place of occurrence of the external cause; Z71.89 Other specified counseling
CPT/HCPCS: 36415; 71045; 80048; 80061; 80305; 82550; 82553; 82962; 83735; 83880; 84484; 85027; 93005; 93306; 93970; 97162; 99285; J1160; J1650; J1815; J1940; J3475; J7050

== ENCOUNTER 2018-07-28 16:50 | Inpatient (IN) | payer MEDICARE, OTHER ==
[~2018-07-28] VITALS: Ht 165.1 cm; Wt 91.0 kg
[~2018-07-28 16:50] MED LIST changes: +ASPI-1159 MT; -ASPI-1159 PO; -ATOR-2 PO; -CLOP75TA33 PO; +COR3 PO; +COR6 PO; -DOCU-150 PO; +INSU100I13 SQ; -LISI40TA4 PO; +METF-414 PO; -METF-416 PO; -METO-539 PO; +OMEP20CA10 PO; -PANT40TA4 PO; -SPIR25TA6 PO
[2018-07-28] MEDS ORDERED: KETOROLAC 30MG/ML VIAL IV STA (22:48)
[2018-07-28 23:23] LABS: CLARITY URINE CLEAR (CLEAR); COLOR URINE YELLOW (YELLOW); KETONES URINE NEGATIVE (NEGATIVE); LEUKOCYTE ESTERASE URINE NEGATIVE (NEGATIVE); NITRITE URINE NEGATIVE (NEGATIVE); OCCULT BLOOD URINE NEGATIVE (NEGATIVE); PROTEIN URINE 1+ (NEGATIVE); SPECIFIC GRAVITY URINE 1.022 (1.005-1.030)
[2018-07-28 23:45] LABS: HEMATOCRIT. 39.8 % (42.0-52.0); HEMOGLOBIN. 12.8 g/dL (14.0-18.0); MEAN CORPUSCULAR HEMOGLOBIN 27.8 pg (28.0-32.0); MEAN CORPUSCULAR VOLUME 86.8 fL (80.0-94.0); MEAN PLATELET VOLUME 11.1 fl (7.4-10.4); PLATELET 129 x1000/uL (130-400); RED BLOOD CELL COUNT 4.58 mill/uL (4.7-6.1); RED CELL DISTRIBUTION WIDTH 16.4 % (11.6-14.6)
[2018-07-28 23:55] LABS: CHLORIDE 110 mEq/L (98-107)
[2018-07-29] MEDS ORDERED: NITROGLYCERIN OINT 1GM/INCH UDPKT TD SCH (02:00)
[2018-07-29] MEDS ORDERED: ASPIRIN 81MG TABLET PO SCH (02:00)
[2018-07-29] MEDS ORDERED: SODIUM CHLORIDE 0.9% 1,000 ML IV SCH (03:16)
[2018-07-29 07:33] LABS: PLATELET ESTIMATE NORMAL
[2018-07-29] MEDS ORDERED: ACETAMINOPHEN 650MG/20.3ML UDC GT PRN (09:00)
[2018-07-29] MEDS ORDERED: CLONIDINE 0.1MG TABLET PO PRN (09:00)
[2018-07-29] MEDS ORDERED: IPRATROPIUM/ALBUTEROL 0.5-3(2.5)MG/3ML NEB INH PRN (09:00)
[2018-07-29] MEDS ORDERED: NA PHOS,M-B/NA PHOS,DI-BA ENEMA 118ML PR PRN (09:00)
[2018-07-29] MEDS ORDERED: MAGNESIUM/ALUMINUM HYDROXIDE/SIMETHICONE 30ML UDC PO PRN (09:00)
[2018-07-29] MEDS ORDERED: GUAIFENESIN 200MG/10ML SUGAR FREE UDC PO PRN (09:00)
[2018-07-29] MEDS ORDERED: DOCUSATE SODIUM 100MG CAPSULE PO PRN (09:00)
[2018-07-29] MEDS ORDERED: DEXTROSE 50% WATER 50ML SYRINGE IV PRN (09:00)
[2018-07-29] MEDS ORDERED: DIPHENHYDRAMINE 50MG/ML VIAL IV PRN (09:00)
[2018-07-29] MEDS ORDERED: ONDANSETRON HCL 4MG/2ML INJ IV PRN (09:00)
[2018-07-29] MEDS ORDERED: ACETAMINOPHEN 325MG TABLET PO PRN (09:00)
[2018-07-29] MEDS ORDERED: ACETAMINOPHEN 650MG SUPP PR PRN (09:00)
[2018-07-29] MEDS: DILTIAZEM HCL 30MG TABLET PO SCH ×4 (09:28→23:36)
[2018-07-29] MEDS: CARVEDILOL 3.125 MG TABLET PO SCH ×2 (09:28→20:45)
[2018-07-29 09:43] LABS: HEMATOCRIT. 39.8 % (42.0-52.0); HEMOGLOBIN. 12.7 g/dL (14.0-18.0); MEAN CORPUSCULAR HEMOGLOBIN 27.7 pg (28.0-32.0); MEAN PLATELET VOLUME 10.7 fl (7.4-10.4); PLATELET 124 x1000/uL (130-400); RED BLOOD CELL COUNT 4.58 mill/uL (4.7-6.1); RED CELL DISTRIBUTION WIDTH 16.8 % (11.6-14.6)
[2018-07-29 09:48] LABS: CHLORIDE 110 mEq/L (98-107)
[2018-07-29 09:55] LABS: LDL CHOLESTEROL 75 mg/dL (5-100)
[2018-07-29 09:57] LABS: HDL CHOLESTEROL 19 mg/dL (40-59)
[2018-07-29 10:18] LABS: PLATELET ESTIMATE NORMAL
[2018-07-29 10:33] VITALS: BP 128/72
[2018-07-29 10:36] VITALS: BP 128/72
[2018-07-29] MEDS: BLOOD SUGAR DIAGNOSTIC STRIP TEST SCH ×3 (11:29→20:52)
[2018-07-29] MEDS: OMEPRAZOLE 20MG CAPSULE EXTENDED RELEASE PO SCH (11:52)
[2018-07-29] MEDS: ASPIRIN 81MG TABLET PO SCH (11:52)
[2018-07-29 12:00] VITALS: BP 104/76
[2018-07-29] MEDS ORDERED: DILTIAZEM HCL 30MG TABLET PO SCH (12:00)
[2018-07-29 12:04] LABS: HEPATITIS B SURFACE ANTIGEN NEGATIVE
[2018-07-29 12:34] LABS: HEPATITIS A AB IGM NEGATIVE (NEGATIVE)
[2018-07-29] MEDS: INSULIN LISPRO 100 UNITS/ML SUBCUT SCH ×3 (13:00→20:55)
[2018-07-29] MEDS: SODIUM CHLORIDE 0.9% INJ 3ML FLUSH IVF SCH ×2 (13:47→20:48)
[2018-07-29] MEDS ORDERED: INFLUENZA VIRUS VACCINE(AFLURIA) 0.5ML SYR IM ONE (15:00)
[2018-07-29] MEDS ORDERED: PNEUMOCOCCAL 23-VAL P-SAC VAC 0.5 ML IM ONE (15:00)
[2018-07-29 15:53] LABS: CREATINE KINASE MB FRACTION 7.4 ng/mL (0.5-3.6)
[2018-07-29 16:00] VITALS: BP 114/69
[2018-07-29] MEDS: RIVAROXABAN 10 MG TABLET PO SCH (16:58)
[2018-07-29] MEDS ORDERED: MEDICATION NOT ON FORMULARY EA (Rivaroxaban (Xarelto) 20 MG) PO SCH (17:00)
[2018-07-29 20:00] VITALS: BP 130/75
[2018-07-29 23:22] LABS: CREATINE KINASE MB FRACTION 7.4 ng/mL (0.5-3.6)
[2018-07-30] VITALS (7 sets, daily range): BP systolic 102–130; BP diastolic 62–85
[2018-07-30] MEDS: DILTIAZEM HCL 30MG TABLET PO SCH ×3 (06:04→17:11)
[2018-07-30] MEDS: SODIUM CHLORIDE 0.9% INJ 3ML FLUSH IVF SCH ×2 (06:06→14:07)
[2018-07-30 07:10] LABS: BASOPHILS % 0.7 % (0.0-2.0); EOSINOPHILS % 3.8 % (0.0-5.0); HEMATOCRIT. 37.1 % (42.0-52.0); HEMOGLOBIN. 11.9 g/dL (14.0-18.0); LYMPHOCYTES % 19.9 % (20.0-50.0); MEAN CORPUSCULAR HEMOGLOBIN 27.5 pg (28.0-32.0); MEAN CORPUSCULAR VOLUME 86.2 fL (80.0-94.0); MEAN PLATELET VOLUME 11.3 fl (7.4-10.4); MONOCYTES % 14.5 % (2.0-8.0); NEUTROPHILS % 61.1 % (40.0-76.0); PLATELET 118 x1000/uL (130-400); RED BLOOD CELL COUNT 4.31 mill/uL (4.7-6.1); RED CELL DISTRIBUTION WIDTH 16.7 % (11.6-14.6)
[2018-07-30 07:20] LABS: CHLORIDE 106 mEq/L (98-107)
[2018-07-30] MEDS: BLOOD SUGAR DIAGNOSTIC STRIP TEST SCH ×4 (07:30→21:00)
[2018-07-30 07:35] LABS: LDL CHOLESTEROL 56 mg/dL (5-100)
[2018-07-30 07:38] LABS: HDL CHOLESTEROL 16 mg/dL (40-59)
[2018-07-30] MEDS: INSULIN LISPRO 100 UNITS/ML SUBCUT SCH ×3 (08:00→18:50)
[2018-07-30] MEDS: OMEPRAZOLE 20MG CAPSULE EXTENDED RELEASE PO SCH (09:17)
[2018-07-30] MEDS: CARVEDILOL 3.125 MG TABLET PO SCH ×2 (09:18→22:18)
[2018-07-30] MEDS: ASPIRIN 81MG TABLET PO SCH (09:18)
[2018-07-30] MEDS ORDERED: MAGNESIUM CITRATE 300ML SOLUTION PO NR (13:00)
[2018-07-30] MEDS: RIVAROXABAN 10 MG TABLET PO SCH (17:11)
[2018-07-30] MEDS: FUROSEMIDE 20MG TABLET PO SCH (22:17)
[2018-07-31] VITALS: BP_SYST 110; BP_DIAS 64; BP_DIAS 68
[2018-07-31] MEDS: SODIUM CHLORIDE 0.9% INJ 3ML FLUSH IVF SCH ×3 (01:47→14:11)
[2018-07-31] MEDS: DILTIAZEM HCL 30MG TABLET PO SCH ×3 (01:47→11:47)
[2018-07-31] MEDS: INSULIN LISPRO 100 UNITS/ML SUBCUT SCH ×3 (01:49→12:26)
[2018-07-31 04:00] VITALS: BP 123/80
[2018-07-31] MEDS: BLOOD SUGAR DIAGNOSTIC STRIP TEST SCH ×2 (06:22→12:14)
[2018-07-31 07:12] LABS: BASOPHILS % 0.8 % (0.0-2.0); EOSINOPHILS % 4.1 % (0.0-5.0); HEMATOCRIT. 37.2 % (42.0-52.0); MEAN CORPUSCULAR HEMOGLOBIN 27.7 pg (28.0-32.0); MEAN CORPUSCULAR VOLUME 85.7 fL (80.0-94.0); MEAN PLATELET VOLUME 10.9 fl (7.4-10.4); MONOCYTES % 12.6 % (2.0-8.0); NEUTROPHILS % 60.5 % (40.0-76.0); PLATELET 109 x1000/uL (130-400); RED BLOOD CELL COUNT 4.34 mill/uL (4.7-6.1); RED CELL DISTRIBUTION WIDTH 16.6 % (11.6-14.6)
[2018-07-31] MEDS: OMEPRAZOLE 20MG CAPSULE EXTENDED RELEASE PO SCH (07:51)
[2018-07-31 08:00] VITALS: BP 115/66
[2018-07-31] MEDS ORDERED: LOSARTAN POTASSIUM 25 MG TABLET PO SCH (09:00)
[2018-07-31] MEDS: FUROSEMIDE 20MG TABLET PO SCH (09:13)
[2018-07-31] MEDS: CARVEDILOL 3.125 MG TABLET PO SCH (09:13)
[2018-07-31] MEDS: ASPIRIN 81MG TABLET PO SCH (09:13)
[2018-07-31] MEDS ORDERED: DILT30TA38 PO (10:54)
[2018-07-31] MEDS ORDERED: FURO20TA4 PO (10:54)
[2018-07-31] MEDS ORDERED: LOSA25TA3 PO (10:54)
[2018-07-31 12:00] VITALS: BP 103/63
[2018-07-31 14:43] VITALS: BP 103/63
[2018-07-31 15:39] LABS: CHLORIDE 106 mEq/L (98-107)
== END 2018-07-31 15:41 | disposition home or self-care (01) | DRG 309 ==
LOC: ER 18:13 → 5EST 07-29 03:19 → EDBEDREQ 07-29 03:30 → EDBEDREQSVC 07-29 08:52 → ENRESERV 07-29 09:30 → 7WST 07-30 11:40
PROVIDERS: ADMIT Family Medicine; ATTEND Family Medicine
DX: I48.91 Unspecified atrial fibrillation (principal); J98.11 Atelectasis; I13.0 Hypertensive heart and chronic kidney disease with heart failure and stage 1 through stage 4 chronic kidney disease, or unspecified chronic kidney disease; R18.8 Other ascites; E44.1 Mild protein-calorie malnutrition; R10.9 Unspecified abdominal pain; I42.0 Dilated cardiomyopathy; R74.8 Abnormal levels of other serum enzymes; K80.20 Calculus of gallbladder without cholecystitis without obstruction; N18.1 Chronic kidney disease, stage 1; Z79.01 Long term (current) use of anticoagulants; I50.9 Heart failure, unspecified; E11.22 Type 2 diabetes mellitus with diabetic chronic kidney disease; R74.0 Nonspecific elevation of levels of transaminase and lactic acid dehydrogenase [LDH]; E78.00 Pure hypercholesterolemia, unspecified; E78.5 Hyperlipidemia, unspecified; I25.10 Atherosclerotic heart disease of native coronary artery without angina pectoris; I34.0 Nonrheumatic mitral (valve) insufficiency; K59.00 Constipation, unspecified; Z79.4 Long term (current) use of insulin; Z95.810 Presence of automatic (implantable) cardiac defibrillator; Z79.82 Long term (current) use of aspirin; Z79.84 Long term (current) use of oral hypoglycemic drugs; Z68.33 Body mass index [BMI] 33.0-33.9, adult
CPT/HCPCS: 36415; 71045; 74018; 74176; 80048; 80061; 82550; 82553; 82962; 83605; 83735; 84443; 84484; 86705; 86709; 86803; 87340; 93005; 96374; 97161; 99285; J1815; J1885; J7030

== ENCOUNTER 2019-01-02 10:27 | Inpatient (IN) | payer OTHER, MEDICAID ==
[2019-01-02] VITALS (40 sets, daily range): BP systolic 105–172; BP diastolic 59–142
[~2019-01-02] VITALS: Ht 172.7 cm; Wt 85.3 kg
[~2019-01-02 10:27] MED LIST changes: -COR6 PO; +DILT30TA38 PO; +FURO20TA4 PO; +LOSA25TA3 PO; -METF-414 PO
[2019-01-02] MEDS ORDERED: DEXTROSE 50% WATER 50ML SYRINGE IV ONE (10:30)
[2019-01-02] MEDS ORDERED: SODIUM CHLORIDE 0.9% 1,000 ML IV ONE (10:34)
[2019-01-02] MEDS ORDERED: ETOMIDATE 2MG/ML 10ML VIAL IV ONE (10:43)
[2019-01-02] MEDS ORDERED: SUCCINYLCHOLINE CHLORIDE 200MG/10ML IV ONE (10:43)
[2019-01-02 10:46] LABS: EOSINOPHILS % 0.3 % (0.0-5.0); HEMATOCRIT. 41.3 % (42.0-52.0); HEMOGLOBIN. 12.4 g/dL (14.0-18.0); LYMPHOCYTES % 13.4 % (20.0-50.0); MEAN CORPUSCULAR HEMOGLOBIN 26.9 pg (28.0-32.0); MEAN CORPUSCULAR VOLUME 89.7 fL (80.0-94.0); MEAN PLATELET VOLUME 12.4 fl (7.4-10.4); MONOCYTES % 9.9 % (2.0-8.0); NEUTROPHILS % 75.4 % (40.0-76.0); PLATELET 171 x1000/uL (130-400); RED BLOOD CELL COUNT 4.61 mill/uL (4.7-6.1); RED CELL DISTRIBUTION WIDTH 21.3 % (11.6-14.6)
[2019-01-02 10:53] LABS: CHLORIDE 102 mEq/L (98-107)
[2019-01-02 10:57] LABS: ETHANOL BLOOD < 10 mg/dL
[2019-01-02 11:11] LABS: CLARITY URINE CLEAR (CLEAR); COLOR URINE DARK YELLOW (YELLOW); KETONES URINE NEGATIVE (NEGATIVE); LEUKOCYTE ESTERASE URINE NEGATIVE (NEGATIVE); NITRITE URINE NEGATIVE (NEGATIVE); OCCULT BLOOD URINE NEGATIVE (NEGATIVE); PROTEIN URINE 3+ (NEGATIVE); SPECIFIC GRAVITY URINE 1.026 (1.005-1.030)
[2019-01-02 11:27] LABS: *BARBITURATES SCREEN URINE NEGATIVE (NEGATIVE); *BENZODIAZEPINES SCREEN URINE NEGATIVE (NEGATIVE); *COCAINE SCREEN URINE NEGATIVE (NEGATIVE)
[2019-01-02 11:28] LABS: CANNABINOID URINE SCREEN NEGATIVE (NEGATIVE); METHADONE URINE SCREEN NEGATIVE (NEGATIVE); OPIATES URINE SCREEN NEGATIVE (NEGATIVE); PHENCYCLIDINE URINE SCREEN NEGATIVE (NEGATIVE)
[2019-01-02 11:35] LABS: *AMPHETAMINES SCREEN URINE NEGATIVE (NEGATIVE)
[2019-01-02 11:54] LABS: BG BASE EXCESS -8.7 mmol/L (-2.0-2.0); BG CARBOXYHEMOGLOBIN 0.7 % (0.5-1.5); BG DEOXYHEMOGLOBIN 1.5 % (0.0-5.0); BG FRACTION INSPIRED OXYGEN 60; BG METHEMOGLOBIN 0.5 % (0.0-1.5); BG OXYGEN SATURATION 98.5 % (92.0-98.5); BG OXYHEMOGLOBIN 97.3 % (94.0-97.0); BG PCO2 54.7 mmHg (35.0-45.0); BG SAMPLE SITE RIGHT RADIAL; BG TOTAL HEMOGLOBIN 12.7 g/dL (12.0-18.0); BG VENT MODE MASK - SIMPLE
[2019-01-02 11:54] LABS: PROTHROMBIN TIME 38.8 sec (9.6-11.0)
[2019-01-02] MEDS ORDERED: MIDAZOLAM HCL 50 MG in DEXTROSE 5% WATER 40 ML IV ONE ×2 (12:30→12:45)
[2019-01-02] MEDS ORDERED: MIDAZOLAM HCL 2 MG/2 ML VIAL IV ONE (12:30)
[2019-01-02 14:16] LABS: HEPATITIS B SURFACE ANTIGEN NEGATIVE
[2019-01-02 14:23] LABS: CREATINE KINASE MB FRACTION 10.3 ng/mL (0.5-3.6)
[2019-01-02] MEDS ORDERED: ONDANSETRON HCL 4MG/2ML INJ IV PRN (14:30)
[2019-01-02] MEDS ORDERED: DOCUSATE SODIUM 100MG CAPSULE PO PRN (14:30)
[2019-01-02] MEDS ORDERED: GUAIFENESIN 200MG/10ML SUGAR FREE UDC PO PRN (14:30)
[2019-01-02] MEDS ORDERED: DIPHENHYDRAMINE 50MG/ML VIAL IV PRN (14:30)
[2019-01-02 14:45] LABS: HEPATITIS A AB IGM NEGATIVE (NEGATIVE)
[2019-01-02] MEDS: PROPOFOL 10MG/ML 100ML 100 ML IV PRN ×4 (14:52→23:06)
[2019-01-02 14:55] LABS: BG BASE EXCESS -8.2 mmol/L (-2.0-2.0); BG CARBOXYHEMOGLOBIN 0.3 % (0.5-1.5); BG DEOXYHEMOGLOBIN 1.7 % (0.0-5.0); BG FRACTION INSPIRED OXYGEN 50; BG HCO3 ACT 18.1 mmol/L (22.0-26.0); BG METHEMOGLOBIN 0.3 % (0.0-1.5); BG OXYGEN SATURATION 98.3 % (92.0-98.5); BG OXYHEMOGLOBIN 97.7 % (94.0-97.0); BG PCO2 40.3 mmHg (35.0-45.0); BG PH 7.271 (7.350-7.450); BG PO2 147.7 mmHg (75.0-100.0); BG SAMPLE SITE LEFT RADIAL; BG TIDAL VOLUME(mL) 500 mL; BG TOTAL HEMOGLOBIN 12.6 g/dL (12.0-18.0); BG VENT MODE VENT - A/C; BG VENT RATE 14 set
[2019-01-02] MEDS ORDERED: LORAZEPAM 2MG/ML CPJ IV PRN (15:30)
[2019-01-02] MEDS: LOSARTAN POTASSIUM 25 MG TABLET PO SCH (15:50)
[2019-01-02] MEDS ORDERED: VANCOMYCIN 2,000 MG in DEXT 5% WATER 500 ML IV NR (16:00)
[2019-01-02] MEDS ORDERED: HYDRALAZINE 20MG/ML VIAL IV PRN (16:30)
[2019-01-02] MEDS: DILTIAZEM HCL 30MG TABLET PO SCH (18:00)
[2019-01-02] MEDS: PIPERACILLIN/TAZ 3.375G PREMIX 50 ML IV SCH (18:00)
[2019-01-02] MEDS ORDERED: DEXTROSE 50% WATER 50ML SYRINGE IV PRN (18:15)
[2019-01-02] MEDS: IPRATROPIUM/ALBUTEROL 0.5-3(2.5)MG/3ML NEB HHN SCH (20:08)
[2019-01-02] MEDS: PANTOPRAZOLE SODIUM 40 MG/VIAL IV SCH (21:15)
[2019-01-03] VITALS (92 sets, daily range): BP systolic 101–153; BP diastolic 59–96
[2019-01-03] MEDS: BLOOD SUGAR DIAGNOSTIC STRIP TEST SCH ×4 (00:28→17:27)
[2019-01-03] MEDS: PIPERACILLIN/TAZ 3.375G PREMIX 50 ML IV SCH ×4 (00:33→17:43)
[2019-01-03] MEDS: DILTIAZEM HCL 30MG TABLET PO SCH ×4 (00:33→17:43)
[2019-01-03] MEDS: INSULIN LISPRO 100 UNITS/ML SUBCUT SCH ×4 (00:34→17:27)
[2019-01-03] MEDS: IPRATROPIUM/ALBUTEROL 0.5-3(2.5)MG/3ML NEB HHN SCH ×4 (02:42→20:54)
[2019-01-03 05:29] LABS: CHLORIDE 110 mEq/L (98-107)
[2019-01-03 05:33] LABS: BASOPHILS % 0.8 % (0.0-2.0); EOSINOPHILS % 1.3 % (0.0-5.0); HEMATOCRIT. 36.7 % (42.0-52.0); HEMOGLOBIN. 11.4 g/dL (14.0-18.0); LYMPHOCYTES % 9.1 % (20.0-50.0); MEAN CORPUSCULAR HEMOGLOBIN 26.1 pg (28.0-32.0); MEAN CORPUSCULAR VOLUME 83.9 fL (80.0-94.0); MONOCYTES % 13.1 % (2.0-8.0); NEUTROPHILS % 75.7 % (40.0-76.0); PLATELET 120 x1000/uL (130-400); RED BLOOD CELL COUNT 4.38 mill/uL (4.7-6.1); RED CELL DISTRIBUTION WIDTH 20.6 % (11.6-14.6)
[2019-01-03] MEDS: PROPOFOL 10MG/ML 100ML 100 ML IV PRN ×2 (05:35→10:07)
[2019-01-03 05:43] LABS: LDL CHOLESTEROL 34 mg/dL (5-100); PHOSPHORUS 3.6 mg/dL (2.5-4.9)
[2019-01-03 05:45] LABS: CREATINE KINASE 143 IU/L (39-308); CREATINE KINASE MB FRACTION 5.8 ng/mL (0.5-3.6); HDL CHOLESTEROL 15 mg/dL (40-59)
[2019-01-03 05:46] LABS: D-DIMER 1.04 mg/L FEU (<0.50); PARTIAL THROMBOPLASTIN TIME 34.2 sec (23.4-31.0); PROTHROMBIN TIME 20.3 sec (9.6-11.0)
[2019-01-03] MEDS ORDERED: VANCOMYCIN 1250MG in DEXTROSE 5% WATER 250ML IV SCH (08:00)
[2019-01-03 08:16] LABS: BG BASE EXCESS -3.1 mmol/L (-2.0-2.0); BG CARBOXYHEMOGLOBIN 0.6 % (0.5-1.5); BG DEOXYHEMOGLOBIN 4.5 % (0.0-5.0); BG HCO3 ACT 20.5 mmol/L (22.0-26.0); BG METHEMOGLOBIN 0.1 % (0.0-1.5); BG OXYGEN SATURATION 95.5 % (92.0-98.5); BG OXYHEMOGLOBIN 94.8 % (94.0-97.0); BG PCO2 32.2 mmHg (35.0-45.0); BG PH 7.422 (7.350-7.450); BG SAMPLE SITE RIGHT BRACHIAL; BG TIDAL VOLUME(mL) 500 mL; BG TOTAL HEMOGLOBIN 12.6 g/dL (12.0-18.0); BG VENT MODE VENT - A/C; BG VENT RATE 16 set
[2019-01-03] MEDS: PANTOPRAZOLE SODIUM 40 MG/VIAL IV SCH (08:45)
[2019-01-03] MEDS: LOSARTAN POTASSIUM 25 MG TABLET PO SCH (09:00)
[2019-01-03] MEDS ORDERED: MIDAZOLAM HCL 100 MG in DEXT 5% WATER 80 ML IV PRN (13:15)
[2019-01-03] MEDS: FENTANYL CITRATE/PF 500 MCG in SODIUM CHLORIDE 0.9% 40 ML IV PRN (14:08)
[2019-01-03] MEDS: ACETAMINOPHEN 650MG SUPP PR PRN (17:27)
[2019-01-04] VITALS (87 sets, daily range): BP systolic 116–156; BP diastolic 61–89
[2019-01-04] MEDS: BLOOD SUGAR DIAGNOSTIC STRIP TEST SCH ×5 (00:30→23:37)
[2019-01-04] MEDS: DILTIAZEM HCL 30MG TABLET PO SCH ×5 (00:35→23:37)
[2019-01-04] MEDS: PIPERACILLIN/TAZ 3.375G PREMIX 50 ML IV SCH ×5 (00:35→23:38)
[2019-01-04] MEDS: IPRATROPIUM/ALBUTEROL 0.5-3(2.5)MG/3ML NEB HHN SCH ×6 (01:51→20:04)
[2019-01-04] MEDS: FENTANYL CITRATE/PF 500 MCG in SODIUM CHLORIDE 0.9% 40 ML IV PRN (05:01)
[2019-01-04] MEDS: ACETAMINOPHEN 650MG SUPP PR PRN ×2 (05:15→17:27)
[2019-01-04 05:40] LABS: HEMATOCRIT. 38.9 % (42.0-52.0); HEMOGLOBIN. 12.1 g/dL (14.0-18.0); MEAN CORPUSCULAR VOLUME 83.6 fL (80.0-94.0); MEAN PLATELET VOLUME 9.8 fl (7.4-10.4); PLATELET 136 x1000/uL (130-400); RED BLOOD CELL COUNT 4.66 mill/uL (4.7-6.1); RED CELL DISTRIBUTION WIDTH 20.5 % (11.6-14.6)
[2019-01-04] MEDS: INSULIN LISPRO 100 UNITS/ML SUBCUT SCH ×5 (05:57→23:37)
[2019-01-04] MEDS: VANCOMYCIN 1250MG in DEXTROSE 5% WATER 250ML IV SCH ×2 (06:01→23:38)
[2019-01-04 09:13] LABS: BG BASE EXCESS -1.7 mmol/L (-2.0-2.0); BG CARBOXYHEMOGLOBIN 0.4 % (0.5-1.5); BG DEOXYHEMOGLOBIN 2.7 % (0.0-5.0); BG FRACTION INSPIRED OXYGEN 40; BG HCO3 ACT 21.8 mmol/L (22.0-26.0); BG OXYGEN SATURATION 97.3 % (92.0-98.5); BG OXYHEMOGLOBIN 96.9 % (94.0-97.0); BG PCO2 33.1 mmHg (35.0-45.0); BG PH 7.437 (7.350-7.450); BG PO2 94.3 mmHg (75.0-100.0); BG SAMPLE SITE RIGHT RADIAL; BG TIDAL VOLUME(mL) 500 mL; BG TOTAL HEMOGLOBIN 12.2 g/dL (12.0-18.0); BG VENT MODE VENT - A/C; BG VENT RATE 16 set
[2019-01-04 09:14] LABS: PLATELET ESTIMATE NORMAL
[2019-01-04] MEDS: PANTOPRAZOLE SODIUM 40 MG/VIAL IV SCH (09:42)
[2019-01-04] MEDS: LOSARTAN POTASSIUM 25 MG TABLET PO SCH (09:42)
[2019-01-04] MEDS ORDERED: FUROSEMIDE 20MG/2ML VIAL IVP SCH (10:00)
[2019-01-04 13:29] LABS: INR 1.4; PROTHROMBIN TIME 14.4 sec (9.6-11.0)
[2019-01-05] VITALS (48 sets, daily range): BP systolic 119–172; BP diastolic 60–95
[2019-01-05] MEDS: IPRATROPIUM/ALBUTEROL 0.5-3(2.5)MG/3ML NEB HHN SCH ×4 (01:21→21:04)
[2019-01-05 05:38] LABS: HEMATOCRIT. 38.9 % (42.0-52.0); HEMOGLOBIN. 12.2 g/dL (14.0-18.0); MEAN CORPUSCULAR VOLUME 83.3 fL (80.0-94.0); MEAN PLATELET VOLUME 10.1 fl (7.4-10.4); PLATELET 137 x1000/uL (130-400); RED BLOOD CELL COUNT 4.67 mill/uL (4.7-6.1); RED CELL DISTRIBUTION WIDTH 20.9 % (11.6-14.6)
[2019-01-05 05:45] LABS: INR 1.4; PARTIAL THROMBOPLASTIN TIME 30.8 sec (23.4-31.0); PROTHROMBIN TIME 13.8 sec (9.6-11.0)
[2019-01-05] MEDS: PIPERACILLIN/TAZ 3.375G PREMIX 50 ML IV SCH ×4 (05:57→23:21)
[2019-01-05] MEDS: DILTIAZEM HCL 30MG TABLET PO SCH ×4 (05:58→23:20)
[2019-01-05] MEDS: INSULIN LISPRO 100 UNITS/ML SUBCUT SCH ×4 (05:58→23:21)
[2019-01-05] MEDS: BLOOD SUGAR DIAGNOSTIC STRIP TEST SCH ×4 (05:59→23:15)
[2019-01-05 06:10] LABS: CHLORIDE 108 mEq/L (98-107)
[2019-01-05 08:07] LABS: BG BASE EXCESS 2.2 mmol/L (-2.0-2.0); BG CARBOXYHEMOGLOBIN 0.3 % (0.5-1.5); BG DEOXYHEMOGLOBIN 3.2 % (0.0-5.0); BG FRACTION INSPIRED OXYGEN 40; BG HCO3 ACT 25.7 mmol/L (22.0-26.0); BG METHEMOGLOBIN 1.1 % (0.0-1.5); BG OXYGEN SATURATION 96.8 % (92.0-98.5); BG OXYHEMOGLOBIN 95.4 % (94.0-97.0); BG PCO2 35.9 mmHg (35.0-45.0); BG PH 7.472 (7.350-7.450); BG PO2 88.9 mmHg (75.0-100.0); BG SAMPLE SITE RIGHT BRACHIAL; BG TIDAL VOLUME(mL) 500 mL; BG TOTAL HEMOGLOBIN 12.6 g/dL (12.0-18.0); BG VENT MODE VENT - A/C; BG VENT RATE 16 set
[2019-01-05] MEDS: LOSARTAN POTASSIUM 25 MG TABLET PO SCH (08:57)
[2019-01-05] MEDS: PANTOPRAZOLE SODIUM 40 MG/VIAL IV SCH (08:57)
[2019-01-05] MEDS ORDERED: POTASSIUM CHLORIDE INJ 40 MEQ in DEXT 5% WATER 250 ML IV SCH (09:00)
[2019-01-05] MEDS: LACTULOSE 20G/30ML UDC PO SCH ×2 (09:06→18:48)
[2019-01-05] MEDS: FUROSEMIDE 100MG/10ML VIAL IVP SCH ×2 (09:10→18:50)
[2019-01-05 09:17] LABS: PLATELET ESTIMATE NORMAL
[2019-01-05] MEDS: VANCOMYCIN 1 G PREMIX 200 ML IV SCH ×2 (12:46→23:21)
[2019-01-05] MEDS: POTASSIUM CHLORIDE 20MEQ/PACKET NG SCH (18:49)
[2019-01-06] VITALS (46 sets, daily range): BP systolic 111–165; BP diastolic 51–96
[2019-01-06] MEDS: IPRATROPIUM/ALBUTEROL 0.5-3(2.5)MG/3ML NEB HHN SCH ×3 (01:10→13:36)
[2019-01-06 04:47] LABS: HEMOGLOBIN. 11.6 g/dL (14.0-18.0); MEAN CORPUSCULAR VOLUME 82.6 fL (80.0-94.0); MEAN PLATELET VOLUME 9.5 fl (7.4-10.4); PLATELET 146 x1000/uL (130-400); RED BLOOD CELL COUNT 4.48 mill/uL (4.7-6.1); RED CELL DISTRIBUTION WIDTH 20.7 % (11.6-14.6)
[2019-01-06 05:07] LABS: CHLORIDE 103 mEq/L (98-107)
[2019-01-06] MEDS: DILTIAZEM HCL 30MG TABLET PO SCH ×3 (05:35→17:12)
[2019-01-06] MEDS: PIPERACILLIN/TAZ 3.375G PREMIX 50 ML IV SCH ×4 (05:36→23:31)
[2019-01-06] MEDS: BLOOD SUGAR DIAGNOSTIC STRIP TEST SCH ×3 (05:36→17:14)
[2019-01-06] MEDS: INSULIN LISPRO 100 UNITS/ML SUBCUT SCH ×3 (05:36→17:13)
[2019-01-06] MEDS ORDERED: KCL 20MEQ/100ML PREMIX 100 ML IV NR ×2 (08:00→10:00)
[2019-01-06] MEDS: POTASSIUM CHLORIDE 20MEQ/PACKET NG SCH ×2 (08:22→17:12)
[2019-01-06] MEDS: LOSARTAN POTASSIUM 25 MG TABLET PO SCH (08:22)
[2019-01-06] MEDS: LACTULOSE 20G/30ML UDC PO SCH ×2 (08:22→17:12)
[2019-01-06] MEDS: PANTOPRAZOLE SODIUM 40 MG/VIAL IV SCH (08:22)
[2019-01-06] MEDS: FUROSEMIDE 100MG/10ML VIAL IVP SCH ×2 (08:23→17:20)
[2019-01-06 08:50] LABS: BG BASE EXCESS 4.5 mmol/L (-2.0-2.0); BG CARBOXYHEMOGLOBIN 1.6 % (0.5-1.5); BG DEOXYHEMOGLOBIN 2.2 % (0.0-5.0); BG FRACTION INSPIRED OXYGEN 40; BG HCO3 ACT 28.4 mmol/L (22.0-26.0); BG METHEMOGLOBIN 0.1 % (0.0-1.5); BG OXYGEN SATURATION 97.8 % (92.0-98.5); BG OXYHEMOGLOBIN 96.1 % (94.0-97.0); BG PCO2 39.7 mmHg (35.0-45.0); BG PH 7.472 (7.350-7.450); BG PO2 95.3 mmHg (75.0-100.0); BG SAMPLE SITE RIGHT RADIAL; BG TIDAL VOLUME(mL) 500 mL; BG TOTAL HEMOGLOBIN 12.9 g/dL (12.0-18.0); BG VENT MODE VENT - A/C; BG VENT RATE 16 set
[2019-01-06 08:59] LABS: PLATELET ESTIMATE NORMAL
[2019-01-06] MEDS ORDERED: LIDOCAINE HCL 1% 20ML VIAL (Pyxis) INJ ONE (10:24)
[2019-01-06 10:27] LABS: INR 1.2; PROTHROMBIN TIME 11.8 sec (9.6-11.0)
[2019-01-06] MEDS: VANCOMYCIN 1 G PREMIX 200 ML IV SCH (11:59)
[2019-01-06] MEDS: MORPHINE SULFATE 4 MG/ML CPJ (NOT FOR IM USE) IV PRN ×2 (16:58→23:29)
[2019-01-06] MEDS: ACETAMINOPHEN 650MG SUPP PR PRN (20:41)
[2019-01-06] MEDS: IPRATROPIUM/ALBUTEROL 0.5-3(2.5)MG/3ML NEB HHN PRN (21:00)
[2019-01-07] VITALS (47 sets, daily range): BP systolic 117–154; BP diastolic 60–103
[2019-01-07] MEDS: VANCOMYCIN 1 G PREMIX 200 ML IV SCH (00:15)
[2019-01-07] MEDS: DILTIAZEM HCL 30MG TABLET PO SCH ×5 (00:21→23:41)
[2019-01-07] MEDS: INSULIN LISPRO 100 UNITS/ML SUBCUT SCH ×5 (00:22→21:14)
[2019-01-07] MEDS: IPRATROPIUM/ALBUTEROL 0.5-3(2.5)MG/3ML NEB HHN SCH ×4 (02:23→21:24)
[2019-01-07] MEDS: MORPHINE SULFATE 4 MG/ML CPJ (NOT FOR IM USE) IV PRN (05:00)
[2019-01-07] MEDS: PIPERACILLIN/TAZ 3.375G PREMIX 50 ML IV SCH ×4 (05:01→23:38)
[2019-01-07 05:41] LABS: BASOPHILS % 0.4 % (0.0-2.0); EOSINOPHILS % 4.6 % (0.0-5.0); HEMATOCRIT. 37.7 % (42.0-52.0); HEMOGLOBIN. 11.9 g/dL (14.0-18.0); LYMPHOCYTES % 8.6 % (20.0-50.0); MEAN CORPUSCULAR HEMOGLOBIN 25.9 pg (28.0-32.0); MEAN CORPUSCULAR VOLUME 82.3 fL (80.0-94.0); MEAN PLATELET VOLUME 9.4 fl (7.4-10.4); MONOCYTES % 13.7 % (2.0-8.0); NEUTROPHILS % 72.7 % (40.0-76.0); PLATELET 166 x1000/uL (130-400); RED BLOOD CELL COUNT 4.58 mill/uL (4.7-6.1); RED CELL DISTRIBUTION WIDTH 20.7 % (11.6-14.6)
[2019-01-07] MEDS: BLOOD SUGAR DIAGNOSTIC STRIP TEST SCH ×5 (06:00→21:04)
[2019-01-07 06:10] LABS: CHLORIDE 100 mEq/L (98-107)
[2019-01-07] MEDS: LACTULOSE 20G/30ML UDC PO SCH ×2 (08:34→17:28)
[2019-01-07] MEDS: LOSARTAN POTASSIUM 25 MG TABLET PO SCH (08:34)
[2019-01-07] MEDS: POTASSIUM CHLORIDE 20MEQ/PACKET NG SCH ×2 (08:34→17:28)
[2019-01-07] MEDS: FUROSEMIDE 100MG/10ML VIAL IVP SCH ×2 (08:35→17:28)
[2019-01-07] MEDS: PANTOPRAZOLE SODIUM 40 MG/VIAL IV SCH (08:35)
[2019-01-07 09:00] LABS: BG BASE EXCESS 9.6 mmol/L (-2.0-2.0); BG CARBOXYHEMOGLOBIN 1.1 % (0.5-1.5); BG DEOXYHEMOGLOBIN 2.7 % (0.0-5.0); BG FRACTION INSPIRED OXYGEN 40; BG HCO3 ACT 34.7 mmol/L (22.0-26.0); BG METHEMOGLOBIN 0.4 % (0.0-1.5); BG OXYGEN SATURATION 97.3 % (92.0-98.5); BG OXYHEMOGLOBIN 95.8 % (94.0-97.0); BG PCO2 48.8 mmHg (35.0-45.0); BG PRESSURE SUPPORT 15; BG SAMPLE SITE RIGHT RADIAL; BG TIDAL VOLUME(mL) 500 mL; BG TOTAL HEMOGLOBIN 13.2 g/dL (12.0-18.0); BG VENT MODE VENT - SIMV; BG VENT RATE 10 set
[2019-01-07] MEDS: FOLIC ACID 1MG TABLET PO SCH (09:13)
[2019-01-07] MEDS: THIAMINE HCL 100MG TABLET PO SCH (09:13)
[2019-01-07] MEDS: MULTIVITAMINS,THER W-MINERALS TABLET PO SCH (09:13)
[2019-01-07 09:15] LABS: T4 FREE 1.25 ng/dL (0.76-1.46)
[2019-01-07 09:41] LABS: FOLIC ACID (FOLATE) SERUM 18.2 ng/mL (>5.38)
[2019-01-07] MEDS ORDERED: DEXTROSE 50% WATER 50ML SYRINGE IV PRN (10:00)
[2019-01-07 11:34] LABS: BG BASE EXCESS 9.4 mmol/L (-2.0-2.0); BG CARBOXYHEMOGLOBIN 1.3 % (0.5-1.5); BG DEOXYHEMOGLOBIN 3.6 % (0.0-5.0); BG FRACTION INSPIRED OXYGEN 40; BG HCO3 ACT 34.7 mmol/L (22.0-26.0); BG METHEMOGLOBIN 0.2 % (0.0-1.5); BG OXYGEN SATURATION 96.3 % (92.0-98.5); BG OXYHEMOGLOBIN 94.9 % (94.0-97.0); BG PCO2 49.7 mmHg (35.0-45.0); BG PH 7.462 (7.350-7.450); BG PO2 80.5 mmHg (75.0-100.0); BG PRESSURE SUPPORT 8; BG SAMPLE SITE RIGHT RADIAL; BG TOTAL HEMOGLOBIN 13.5 g/dL (12.0-18.0); BG VENT MODE VENT - CPAP
[2019-01-07] MEDS: ENOXAPARIN 100MG/ML SYR SUBCUT SCH ×2 (11:53→23:38)
[2019-01-07] MEDS ORDERED: RACEPINEPHRINE 2.25% 0.5ML NEB VIAL HHN NR (14:00)
[2019-01-07] MEDS ORDERED: METHYLPREDNISOLONE SOD SUCC 125 MG/2 ML VIAL IV NR (14:30)
[2019-01-07] MEDS: IPRATROPIUM/ALBUTEROL 0.5-3(2.5)MG/3ML NEB HHN PRN (16:47)
[2019-01-07] MEDS ORDERED: VANCOMYCIN 750 MG PREMIX 150 ML IV SCH (18:00)
[2019-01-07] MEDS: METHYLPREDNISOLONE SOD SUCC 125 MG/2 ML VIAL IV SCH (21:13)
[2019-01-08] VITALS (36 sets, daily range): BP systolic 97–153; BP diastolic 49–92
[2019-01-08] MEDS: IPRATROPIUM/ALBUTEROL 0.5-3(2.5)MG/3ML NEB HHN SCH ×4 (02:36→20:02)
[2019-01-08 05:48] LABS: HEMATOCRIT. 41.1 % (42.0-52.0); MEAN CORPUSCULAR HEMOGLOBIN 26.3 pg (28.0-32.0); MEAN CORPUSCULAR VOLUME 83.4 fL (80.0-94.0); MEAN PLATELET VOLUME 9.6 fl (7.4-10.4); PLATELET 181 x1000/uL (130-400); RED BLOOD CELL COUNT 4.93 mill/uL (4.7-6.1); RED CELL DISTRIBUTION WIDTH 20.3 % (11.6-14.6)
[2019-01-08] MEDS: BLOOD SUGAR DIAGNOSTIC STRIP TEST SCH ×5 (06:21→20:49)
[2019-01-08] MEDS: DILTIAZEM HCL 30MG TABLET PO SCH ×4 (06:27→23:53)
[2019-01-08] MEDS: METHYLPREDNISOLONE SOD SUCC 125 MG/2 ML VIAL IV SCH ×3 (06:27→21:00)
[2019-01-08] MEDS: INSULIN LISPRO 100 UNITS/ML SUBCUT SCH ×5 (06:28→20:53)
[2019-01-08 06:34] LABS: CHLORIDE 96 mEq/L (98-107)
[2019-01-08] MEDS: LACTULOSE 20G/30ML UDC PO SCH ×2 (08:17→16:27)
[2019-01-08] MEDS: PANTOPRAZOLE SODIUM 40 MG/VIAL IV SCH (08:17)
[2019-01-08] MEDS: THIAMINE HCL 100MG TABLET PO SCH (08:18)
[2019-01-08] MEDS: FOLIC ACID 1MG TABLET PO SCH (08:18)
[2019-01-08] MEDS: LOSARTAN POTASSIUM 25 MG TABLET PO SCH (08:18)
[2019-01-08] MEDS: MULTIVITAMINS,THER W-MINERALS TABLET PO SCH (08:18)
[2019-01-08] MEDS: POTASSIUM CHLORIDE 20MEQ/PACKET NG SCH ×2 (08:19→16:27)
[2019-01-08] MEDS: FUROSEMIDE 40MG/4ML VIAL IV SCH (08:48)
[2019-01-08] MEDS: RACEPINEPHRINE 2.25% 0.5ML NEB VIAL HHN SCH ×2 (09:34→14:49)
[2019-01-08] MEDS ORDERED: MEROPENEM 500 MG in SODIUM CHLORIDE 0.9% 50 ML IV SCH (10:00)
[2019-01-08 10:19] LABS: PLATELET ESTIMATE NORMAL
[2019-01-08] MEDS: ENOXAPARIN 100MG/ML SYR SUBCUT SCH ×2 (11:16→23:54)
[2019-01-08] MEDS: LEVOFLOXACIN 750MG PREMIX 150 ML IV SCH (11:17)
[2019-01-08] MEDS ORDERED: INSULIN LISPRO 100 UNITS/ML SUBCUT NR (18:30)
[2019-01-09] VITALS (15 sets, daily range): BP systolic 100–136; BP diastolic 50–86
[2019-01-09] MEDS: IPRATROPIUM/ALBUTEROL 0.5-3(2.5)MG/3ML NEB HHN SCH ×5 (02:10→21:00)
[2019-01-09] MEDS: DILTIAZEM HCL 30MG TABLET PO SCH ×3 (06:22→18:28)
[2019-01-09] MEDS: METHYLPREDNISOLONE SOD SUCC 125 MG/2 ML VIAL IV SCH (06:22)
[2019-01-09 06:48] LABS: CHLORIDE 93 mEq/L (98-107)
[2019-01-09 06:57] LABS: HEMATOCRIT. 37.7 % (42.0-52.0); HEMOGLOBIN. 11.8 g/dL (14.0-18.0); MEAN CORPUSCULAR HEMOGLOBIN 26.1 pg (28.0-32.0); MEAN CORPUSCULAR VOLUME 83.2 fL (80.0-94.0); MEAN PLATELET VOLUME 9.6 fl (7.4-10.4); PLATELET 179 x1000/uL (130-400); RED BLOOD CELL COUNT 4.53 mill/uL (4.7-6.1); RED CELL DISTRIBUTION WIDTH 20.2 % (11.6-14.6)
[2019-01-09] MEDS: BLOOD SUGAR DIAGNOSTIC STRIP TEST SCH ×4 (08:20→21:30)
[2019-01-09] MEDS: INSULIN LISPRO 100 UNITS/ML SUBCUT SCH ×6 (08:47→22:21)
[2019-01-09 09:57] LABS: PLATELET ESTIMATE NORMAL
[2019-01-09] MEDS: PANTOPRAZOLE SODIUM 40 MG/VIAL IV SCH (10:34)
[2019-01-09] MEDS: FUROSEMIDE 40MG/4ML VIAL IV SCH (10:34)
[2019-01-09] MEDS: POTASSIUM CHLORIDE 20MEQ/PACKET NG SCH ×2 (10:35→18:28)
[2019-01-09] MEDS: THIAMINE HCL 100MG TABLET PO SCH (10:35)
[2019-01-09] MEDS: FOLIC ACID 1MG TABLET PO SCH (10:36)
[2019-01-09] MEDS: MULTIVITAMINS,THER W-MINERALS TABLET PO SCH (10:36)
[2019-01-09] MEDS: LACTULOSE 20G/30ML UDC PO SCH (10:37)
[2019-01-09] MEDS: LEVOFLOXACIN 750MG PREMIX 150 ML IV SCH (11:59)
[2019-01-09] MEDS ORDERED: BENZONATATE 100MG CAPSULE PO PRN (12:00)
[2019-01-09] MEDS: METHYLPREDNISOLONE SOD SUCC 40 MG/ML VIAL IV SCH ×2 (12:44→22:20)
[2019-01-09] MEDS ORDERED: POTASSIUM CHLORIDE 20MEQ TABLET SR PO SCH (13:45)
[2019-01-09] MEDS: APIXABAN 5 MG TABLET PO SCH (18:28)
[2019-01-09] MEDS ORDERED: INSULIN GLARGINE UD 100 UNITS/ML SYR SUBCUT SCH (22:00)
[2019-01-09] MEDS ORDERED: INSULIN LISPRO 100 UNITS/ML SUBCUT SCH (22:15)
[2019-01-09] MEDS ORDERED: INSULIN GLARGINE UD 100 UNITS/ML SYR SUBCUT NR (23:30)
[2019-01-10] VITALS (12 sets, daily range): BP systolic 104–146; BP diastolic 47–85
[2019-01-10] MEDS: DILTIAZEM HCL 30MG TABLET PO SCH ×5 (01:00→23:48)
[2019-01-10] MEDS: IPRATROPIUM/ALBUTEROL 0.5-3(2.5)MG/3ML NEB HHN SCH ×4 (02:28→22:03)
[2019-01-10] MEDS: METHYLPREDNISOLONE SOD SUCC 40 MG/ML VIAL IV SCH ×2 (05:41→11:27)
[2019-01-10] MEDS: BLOOD SUGAR DIAGNOSTIC STRIP TEST SCH ×4 (07:51→21:08)
[2019-01-10 08:19] LABS: HEMATOCRIT. 38.5 % (42.0-52.0); HEMOGLOBIN. 12.1 g/dL (14.0-18.0); MEAN CORPUSCULAR HEMOGLOBIN 25.7 pg (28.0-32.0); MEAN CORPUSCULAR VOLUME 82.2 fL (80.0-94.0); MEAN PLATELET VOLUME 9.5 fl (7.4-10.4); PLATELET 196 x1000/uL (130-400); RED BLOOD CELL COUNT 4.68 mill/uL (4.7-6.1); RED CELL DISTRIBUTION WIDTH 19.9 % (11.6-14.6)
[2019-01-10 08:21] LABS: CHLORIDE 96 mEq/L (98-107)
[2019-01-10 08:27] LABS: BETA HYDROXYBUTYRATE 0.2 mMol/L (0.0-0.3)
[2019-01-10] MEDS: INSULIN LISPRO 100 UNITS/ML SUBCUT SCH ×7 (08:29→21:37)
[2019-01-10] MEDS: FUROSEMIDE 40MG/4ML VIAL IV SCH (09:12)
[2019-01-10] MEDS: APIXABAN 5 MG TABLET PO SCH ×2 (09:12→17:34)
[2019-01-10] MEDS: MULTIVITAMINS,THER W-MINERALS TABLET PO SCH (09:12)
[2019-01-10] MEDS: THIAMINE HCL 100MG TABLET PO SCH (09:12)
[2019-01-10] MEDS: FOLIC ACID 1MG TABLET PO SCH (09:12)
[2019-01-10] MEDS: POTASSIUM CHLORIDE 20MEQ/PACKET NG SCH ×2 (09:12→17:34)
[2019-01-10] MEDS: PANTOPRAZOLE SODIUM 40 MG/VIAL IV SCH (09:12)
[2019-01-10] MEDS: INSULIN GLARGINE UD 100 UNITS/ML SYR SUBCUT SCH ×2 (10:01→21:38)
[2019-01-10 11:05] LABS: PLATELET ESTIMATE NORMAL
[2019-01-10 11:15] LABS: INR 1.2; PROTHROMBIN TIME 12.2 sec (9.6-11.0)
[2019-01-10] MEDS: LEVOFLOXACIN 750MG PREMIX 150 ML IV SCH (11:27)
[2019-01-11] VITALS (11 sets, daily range): BP systolic 114–136; BP diastolic 54–82
[2019-01-11] MEDS: IPRATROPIUM/ALBUTEROL 0.5-3(2.5)MG/3ML NEB HHN SCH ×4 (04:14→20:19)
[2019-01-11] MEDS: DILTIAZEM HCL 30MG TABLET PO SCH ×3 (06:01→18:05)
[2019-01-11 06:23] LABS: HEMATOCRIT. 40.3 % (42.0-52.0); HEMOGLOBIN. 12.7 g/dL (14.0-18.0); MEAN CORPUSCULAR HEMOGLOBIN 25.9 pg (28.0-32.0); MEAN PLATELET VOLUME 9.7 fl (7.4-10.4); PLATELET 207 x1000/uL (130-400); RED BLOOD CELL COUNT 4.92 mill/uL (4.7-6.1); RED CELL DISTRIBUTION WIDTH 19.7 % (11.6-14.6)
[2019-01-11 07:08] LABS: CHLORIDE 96 mEq/L (98-107)
[2019-01-11] MEDS: BLOOD SUGAR DIAGNOSTIC STRIP TEST SCH ×4 (08:27→21:00)
[2019-01-11] MEDS ORDERED: GUAIFENESIN-DM 200MG-20MG/10ML UDC PO PRN (08:30)
[2019-01-11] MEDS: INSULIN LISPRO 100 UNITS/ML SUBCUT SCH ×7 (08:45→21:41)
[2019-01-11] MEDS: THIAMINE HCL 100MG TABLET PO SCH (08:46)
[2019-01-11] MEDS: FUROSEMIDE 40MG/4ML VIAL IV SCH (08:46)
[2019-01-11] MEDS: MULTIVITAMINS,THER W-MINERALS TABLET PO SCH (08:46)
[2019-01-11] MEDS: PANTOPRAZOLE SODIUM 40 MG/VIAL IV SCH (08:46)
[2019-01-11] MEDS: POTASSIUM CHLORIDE 20MEQ/PACKET NG SCH ×2 (08:46→16:29)
[2019-01-11] MEDS: APIXABAN 5 MG TABLET PO SCH ×2 (08:46→16:29)
[2019-01-11] MEDS: PREDNISONE 20MG TABLET PO SCH (08:47)
[2019-01-11] MEDS: FOLIC ACID 1MG TABLET PO SCH (08:47)
[2019-01-11] MEDS ORDERED: INSULIN GLARGINE UD 100 UNITS/ML SYR SUBCUT SCH (10:00)
[2019-01-11 10:21] LABS: PLATELET ESTIMATE NORMAL
[2019-01-11] MEDS ORDERED: LEVOFLOXACIN 250MG TABLET PO SCH (11:00)
[2019-01-11] MEDS ORDERED: POTA10CA42 MT (12:48)
[2019-01-11] MEDS ORDERED: FOLI-43 PO (12:48)
[2019-01-11] MEDS ORDERED: P20 MT (12:48)
[2019-01-11] MEDS ORDERED: APIX5TAB PO (12:48)
[2019-01-11] MEDS ORDERED: THIA100T72 PO (12:48)
[2019-01-11] MEDS ORDERED: LEVO750T46 MT (12:48)
[2019-01-11] MEDS: INSULIN GLARGINE UD 100 UNITS/ML SYR SUBCUT SCH (21:41)
[2019-01-12] VITALS (10 sets, daily range): BP systolic 103–142; BP diastolic 63–82
[2019-01-12] MEDS: DILTIAZEM HCL 30MG TABLET PO SCH ×5 (00:30→23:29)
[2019-01-12] MEDS: IPRATROPIUM/ALBUTEROL 0.5-3(2.5)MG/3ML NEB HHN SCH ×3 (02:30→13:35)
[2019-01-12] MEDS: BLOOD SUGAR DIAGNOSTIC STRIP TEST SCH ×4 (08:00→21:30)
[2019-01-12] MEDS: INSULIN LISPRO 100 UNITS/ML SUBCUT SCH ×7 (08:33→21:00)
[2019-01-12] MEDS: MULTIVITAMINS,THER W-MINERALS TABLET PO SCH (08:35)
[2019-01-12] MEDS: FUROSEMIDE 40MG/4ML VIAL IV SCH (08:35)
[2019-01-12] MEDS: FOLIC ACID 1MG TABLET PO SCH (08:35)
[2019-01-12] MEDS: THIAMINE HCL 100MG TABLET PO SCH (08:35)
[2019-01-12] MEDS: PREDNISONE 20MG TABLET PO SCH (08:35)
[2019-01-12] MEDS: POTASSIUM CHLORIDE 20MEQ/PACKET NG SCH ×2 (08:35→17:44)
[2019-01-12] MEDS: PANTOPRAZOLE SODIUM 40 MG/VIAL IV SCH (08:35)
[2019-01-12] MEDS: APIXABAN 5 MG TABLET PO SCH ×2 (08:35→17:45)
[2019-01-12] MEDS ORDERED: PHENOL/SODIUM PHENOLATE 1.4% SRPAY 177ML MM NR (11:15)
[2019-01-12] MEDS ORDERED: ACETAMINOPHEN 325MG TABLET PO PRN (11:15)
[2019-01-12] MEDS ORDERED: THROAT LOZENGES-BENZOCAINE/MENTH/CETYLPYRD CL LOZENGES MM PRN (11:15)
[2019-01-12] MEDS ORDERED: GLIPIZIDE XL 2.5MG TABLET PO NR (11:15)
[2019-01-12] MEDS: INSULIN GLARGINE UD 100 UNITS/ML SYR SUBCUT SCH ×2 (12:04→23:28)
[2019-01-12] MEDS: METFORMIN HCL 500MG TABLET PO SCH (17:45)
[2019-01-13] VITALS (13 sets, daily range): BP systolic 98–137; BP diastolic 55–84
[2019-01-13] MEDS: PANTOPRAZOLE 40MG DR TABLET PO SCH (06:38)
[2019-01-13] MEDS: DILTIAZEM HCL 30MG TABLET PO SCH ×4 (06:38→23:57)
[2019-01-13] MEDS: BLOOD SUGAR DIAGNOSTIC STRIP TEST SCH ×4 (07:30→21:58)
[2019-01-13] MEDS: INSULIN LISPRO 100 UNITS/ML SUBCUT SCH ×7 (07:30→21:00)
[2019-01-13] MEDS: IPRATROPIUM/ALBUTEROL 0.5-3(2.5)MG/3ML NEB HHN SCH ×3 (07:31→20:06)
[2019-01-13 07:41] LABS: BASOPHILS % 0.2 % (0.0-2.0); HEMATOCRIT. 41.9 % (42.0-52.0); HEMOGLOBIN. 13.2 g/dL (14.0-18.0); LYMPHOCYTES % 21.1 % (20.0-50.0); MEAN CORPUSCULAR HEMOGLOBIN 25.9 pg (28.0-32.0); MEAN CORPUSCULAR VOLUME 82.1 fL (80.0-94.0); MEAN PLATELET VOLUME 9.6 fl (7.4-10.4); MONOCYTES % 11.3 % (2.0-8.0); NEUTROPHILS % 62.4 % (40.0-76.0); PLATELET 246 x1000/uL (130-400); RED CELL DISTRIBUTION WIDTH 19.9 % (11.6-14.6)
[2019-01-13 08:13] LABS: CHLORIDE 103 mEq/L (98-107)
[2019-01-13] MEDS: APIXABAN 5 MG TABLET PO SCH ×2 (08:59→17:55)
[2019-01-13] MEDS: MULTIVITAMINS,THER W-MINERALS TABLET PO SCH (08:59)
[2019-01-13] MEDS: FUROSEMIDE 20MG TABLET PO SCH ×2 (09:00→21:58)
[2019-01-13] MEDS: FOLIC ACID 1MG TABLET PO SCH (09:00)
[2019-01-13] MEDS: THIAMINE HCL 100MG TABLET PO SCH (09:00)
[2019-01-13] MEDS: POTASSIUM CHLORIDE 20MEQ/PACKET NG SCH ×2 (09:00→17:55)
[2019-01-13] MEDS: METFORMIN HCL 500MG TABLET PO SCH ×2 (09:00→17:57)
[2019-01-13] MEDS: INSULIN GLARGINE UD 100 UNITS/ML SYR SUBCUT SCH ×2 (10:44→22:01)
[2019-01-14] VITALS (8 sets, daily range): BP systolic 98–138; BP diastolic 56–77
[2019-01-14] MEDS: IPRATROPIUM/ALBUTEROL 0.5-3(2.5)MG/3ML NEB HHN SCH ×3 (01:15→14:33)
[2019-01-14] MEDS: DILTIAZEM HCL 30MG TABLET PO SCH ×2 (06:00→12:41)
[2019-01-14] MEDS: PANTOPRAZOLE 40MG DR TABLET PO SCH (06:15)
[2019-01-14] MEDS: INSULIN LISPRO 100 UNITS/ML SUBCUT SCH ×4 (07:30→12:39)
[2019-01-14] MEDS: METFORMIN HCL 500MG TABLET PO SCH (08:00)
[2019-01-14] MEDS: BLOOD SUGAR DIAGNOSTIC STRIP TEST SCH ×3 (08:11→17:00)
[2019-01-14] MEDS: MULTIVITAMINS,THER W-MINERALS TABLET PO SCH (09:09)
[2019-01-14] MEDS: THIAMINE HCL 100MG TABLET PO SCH (09:09)
[2019-01-14] MEDS: POTASSIUM CHLORIDE 20MEQ/PACKET NG SCH (09:09)
[2019-01-14] MEDS: FUROSEMIDE 20MG TABLET PO SCH (09:09)
[2019-01-14] MEDS: FOLIC ACID 1MG TABLET PO SCH (09:09)
[2019-01-14] MEDS: APIXABAN 5 MG TABLET PO SCH (09:09)
[2019-01-14] MEDS: INSULIN GLARGINE UD 100 UNITS/ML SYR SUBCUT SCH (09:10)
== END 2019-01-14 17:40 | disposition home health service (06) | DRG 870 ==
LOC: ER 10:27 → MICUNO 12:36 → ENRESERV 12:47 → 5EST 01-08 17:00
PROVIDERS: ADMIT Internal Medicine; ATTEND Internal Medicine
PROC: 5A1955Z Respiratory Ventilation, Greater than 96 Consecutive Hours (ICD-10-PCS; principal; 2019-01-02)
PROC: 0BH17EZ Insertion of Endotracheal Airway into Trachea, Via Natural or Artificial Opening (ICD-10-PCS; 2019-01-02)
PROC: 4A00X4Z Measurement of Central Nervous Electrical Activity, External Approach (ICD-10-PCS; 2019-01-04)
PROC: 02HV33Z Insertion of Infusion Device into Superior Vena Cava, Percutaneous Approach (ICD-10-PCS; 2019-01-06)
PROC: B548ZZA Ultrasonography of Superior Vena Cava, Guidance (ICD-10-PCS; 2019-01-06)
PROC: 5A09357 Assistance with Respiratory Ventilation, Less than 24 Consecutive Hours, Continuous Positive Airway Pressure (ICD-10-PCS; 2019-01-07)
DX: A41.50 Gram-negative sepsis, unspecified (principal); J96.02 Acute respiratory failure with hypercapnia; G92 Toxic encephalopathy; I50.23 Acute on chronic systolic (congestive) heart failure; N17.0 Acute kidney failure with tubular necrosis; J69.0 Pneumonitis due to inhalation of food and vomit; J15.6 Pneumonia due to other Gram-negative bacteria; E44.1 Mild protein-calorie malnutrition; I16.1 Hypertensive emergency; I31.3 Pericardial effusion (noninflammatory); D68.9 Coagulation defect, unspecified; I13.0 Hypertensive heart and chronic kidney disease with heart failure and stage 1 through stage 4 chronic kidney disease, or unspecified chronic kidney disease; R18.8 Other ascites; I42.0 Dilated cardiomyopathy; K92.2 Gastrointestinal hemorrhage, unspecified; E72.20 Disorder of urea cycle metabolism, unspecified; N18.9 Chronic kidney disease, unspecified; E11.22 Type 2 diabetes mellitus with diabetic chronic kidney disease; E78.5 Hyperlipidemia, unspecified; D64.9 Anemia, unspecified; I25.10 Atherosclerotic heart disease of native coronary artery without angina pectoris; I25.5 Ischemic cardiomyopathy; E87.6 Hypokalemia; E78.00 Pure hypercholesterolemia, unspecified; I48.0 Paroxysmal atrial fibrillation; E78.1 Pure hyperglyceridemia; R74.0 Nonspecific elevation of levels of transaminase and lactic acid dehydrogenase [LDH]; R16.1 Splenomegaly, not elsewhere classified; K80.20 Calculus of gallbladder without cholecystitis without obstruction; K76.0 Fatty (change of) liver, not elsewhere classified; I08.1 Rheumatic disorders of both mitral and tricuspid valves; E09.65 Drug or chemical induced diabetes mellitus with hyperglycemia; E11.649 Type 2 diabetes mellitus with hypoglycemia without coma; T38.0X5A Adverse effect of glucocorticoids and synthetic analogues, initial encounter; I25.2 Old myocardial infarction; Z79.4 Long term (current) use of insulin; Z95.810 Presence of automatic (implantable) cardiac defibrillator; Z79.899 Other long term (current) drug therapy; Z79.82 Long term (current) use of aspirin; Z78.1 Physical restraint status; Y92.89 Other specified places as the place of occurrence of the external cause; Z68.28 Body mass index [BMI] 28.0-28.9, adult
CPT/HCPCS: 36415; 36569; 36600; 71045; 76700; 76937; 78227; 80048; 80061; 80076; 80202; 80305; 80320; 82010; 82140; 82375; 82550; 82553; 82607; 82746; 82805; 82947; 82962; 83036; 83735; 83880; 84100; 84145; 84439; 84443; 84481; 84484; 85379; 85384; 86705; 86709; 86803; 87070; 87077; 87186; 87340; 92610; 93005; 93306; 93970; 94002; 94003; 94640; 94667; 96374; 97110; 97112; 97116; 97162; 97166; 97530; 97535; 99291; A9537; C1725; C9113; J0330; J0360; J1650; J1815; J1940; J1956; J2060; J2185; J2250; J2270; J2543; J2704; J2920; J2930; J3010; J3370; J3480; J3490; J7030; J7050; J7060; J7512; J7620; A4315; G0480

== ENCOUNTER 2019-01-24 12:38 | Emergency (ER) | payer OTHER, MEDICAID ==
[~2019-01-24] VITALS: Ht 162.6 cm; Wt 84.0 kg
[~2019-01-24 12:38] MED LIST changes: +APIX5TAB PO; -ASPI-1159 MT; +FOLI-43 PO; -INSU100I13 SQ; +LEVO750T46 MT; -OMEP20CA10 PO; +OMEP20CA5 PO; +P20 MT; +POTA10CA42 MT; -RIVA20TA PO; +THIA100T72 PO
[2019-01-24 16:00] VITALS: BP 116/61
== END 2019-01-24 16:00 | disposition home or self-care (01) ==
LOC: ER 12:38
DX: K40.90 Unilateral inguinal hernia, without obstruction or gangrene, not specified as recurrent (principal); E11.22 Type 2 diabetes mellitus with diabetic chronic kidney disease; I13.10 Hypertensive heart and chronic kidney disease without heart failure, with stage 1 through stage 4 chronic kidney disease, or unspecified chronic kidney disease; N18.9 Chronic kidney disease, unspecified; E78.00 Pure hypercholesterolemia, unspecified; I25.10 Atherosclerotic heart disease of native coronary artery without angina pectoris; Z95.0 Presence of cardiac pacemaker; Z98.890 Other specified postprocedural states
CPT/HCPCS: 99284

== ENCOUNTER 2019-02-08 09:53 | Inpatient (IN) | payer OTHER, MEDICAID ==
[~2019-02-08] VITALS: Ht 160 cm; Wt 81.6 kg
[2019-02-08] MEDS ORDERED: ALBUTEROL (0.083%) 2.5MG/3ML NEB HHN STA (10:00)
[2019-02-08] MEDS ORDERED: IPRATROPIUM BROMIDE (0.02%) 0.5MG/2.5ML NEB HHN STA (10:00)
[2019-02-08] MEDS ORDERED: FUROSEMIDE 20MG/2ML VIAL IVP ONE (10:15)
[2019-02-08 10:25] LABS: BASOPHILS % 0.8 % (0.0-2.0); EOSINOPHILS % 5.6 % (0.0-5.0); HEMATOCRIT. 41.6 % (42.0-52.0); HEMOGLOBIN. 13.4 g/dL (14.0-18.0); LYMPHOCYTES % 19.2 % (20.0-50.0); MEAN CORPUSCULAR HEMOGLOBIN 27.9 pg (28.0-32.0); MEAN CORPUSCULAR VOLUME 86.7 fL (80.0-94.0); MONOCYTES % 13.8 % (2.0-8.0); NEUTROPHILS % 60.6 % (40.0-76.0); PLATELET 161 x1000/uL (130-400); RED BLOOD CELL COUNT 4.81 mill/uL (4.7-6.1); RED CELL DISTRIBUTION WIDTH 23.2 % (11.6-14.6)
[2019-02-08 10:31] LABS: CHLORIDE 104 mEq/L (98-107)
[2019-02-08 10:33] LABS: INR 1.1; PARTIAL THROMBOPLASTIN TIME 28.7 sec (23.4-31.0); PROTHROMBIN TIME 10.9 sec (9.6-11.0)
[2019-02-08 10:56] LABS: PLATELET ESTIMATE NORMAL
[2019-02-08 11:02] LABS: CLARITY URINE CLEAR (CLEAR); COLOR URINE YELLOW (YELLOW); KETONES URINE NEGATIVE (NEGATIVE); LEUKOCYTE ESTERASE URINE NEGATIVE (NEGATIVE); NITRITE URINE NEGATIVE (NEGATIVE); OCCULT BLOOD URINE NEGATIVE (NEGATIVE); PROTEIN URINE NEGATIVE (NEGATIVE); SPECIFIC GRAVITY URINE 1.012 (1.005-1.030); UROBILINOGEN URINE 0.2 E.U./dL (0.2-1.0)
[2019-02-08] MEDS ORDERED: IPRATROPIUM/ALBUTEROL 0.5-3(2.5)MG/3ML NEB HHN PRN (11:30)
[2019-02-08] MEDS ORDERED: ACETAMINOPHEN 325MG TABLET PO PRN (11:30)
[2019-02-08] MEDS ORDERED: ONDANSETRON HCL 4MG/2ML INJ IV PRN (11:30)
[2019-02-08] MEDS ORDERED: DEXTROSE 50% WATER 50ML SYRINGE IV PRN (11:30)
[2019-02-08] MEDS ORDERED: FUROSEMIDE 40MG/4ML VIAL IVP SCH (11:30)
[2019-02-08] MEDS: METHYLPREDNISOLONE SOD SUCC 40 MG/ML VIAL IV SCH ×2 (12:20→21:06)
[2019-02-08] MEDS: BLOOD SUGAR DIAGNOSTIC STRIP TEST SCH ×3 (13:00→21:00)
[2019-02-08] MEDS: INSULIN LISPRO 100 UNITS/ML SUBCUT SCH ×3 (13:44→21:11)
[2019-02-08] MEDS ORDERED: GUAIFENESIN-DM 200MG-20MG/10ML UDC PO PRN (14:00)
[2019-02-08 14:30] VITALS: BP 121/71
[2019-02-08] MEDS ORDERED: ENOXAPARIN 40MG/0.4ML SYR SUBCUT SCH (15:00)
[2019-02-08] MEDS: LISINOPRIL 20MG TABLET PO SCH (15:59)
[2019-02-08 16:00] VITALS: BP 134/76
[2019-02-08] MEDS: ASPIRIN 81MG EC TABLET PO SCH (16:03)
[2019-02-08] MEDS: POTASSIUM CHLORIDE 20MEQ TABLET SR PO SCH (16:03)
[2019-02-08] MEDS: MONTELUKAST SODIUM 10MG TABLET PO SCH (17:31)
[2019-02-08] MEDS: FUROSEMIDE 40MG/4ML VIAL IVP SCH (17:31)
[2019-02-08] MEDS: APIXABAN 5 MG TABLET PO SCH (17:31)
[2019-02-08 20:00] VITALS: BP 116/62
[2019-02-08] MEDS: GUAIFENESIN 600MG ER TABLET PO SCH (21:06)
[2019-02-08] MEDS: CARVEDILOL 3.125 MG TABLET PO SCH (21:06)
[2019-02-08] MEDS: ATORVASTATIN CALCIUM 40MG TABLET PO SCH (21:06)
[2019-02-09] VITALS: BP 111/65
[2019-02-09] MEDS: METHYLPREDNISOLONE SOD SUCC 40 MG/ML VIAL IV SCH ×3 (03:32→21:37)
[2019-02-09 04:00] VITALS: BP 110/60
[2019-02-09] MEDS: BLOOD SUGAR DIAGNOSTIC STRIP TEST SCH ×4 (06:23→21:06)
[2019-02-09] MEDS: FUROSEMIDE 40MG/4ML VIAL IVP SCH ×2 (06:23→18:05)
[2019-02-09] MEDS: INSULIN LISPRO 100 UNITS/ML SUBCUT SCH ×4 (06:24→21:48)
[2019-02-09 07:22] LABS: BASOPHILS % 0.2 % (0.0-2.0); HEMATOCRIT. 42.9 % (42.0-52.0); HEMOGLOBIN. 14.2 g/dL (14.0-18.0); LYMPHOCYTES % 8.8 % (20.0-50.0); MEAN CORPUSCULAR HEMOGLOBIN 28.4 pg (28.0-32.0); MEAN CORPUSCULAR VOLUME 85.8 fL (80.0-94.0); MEAN PLATELET VOLUME 9.4 fl (7.4-10.4); PLATELET 177 x1000/uL (130-400); RED CELL DISTRIBUTION WIDTH 22.7 % (11.6-14.6)
[2019-02-09 08:00] VITALS: BP 108/62
[2019-02-09 08:41] LABS: CHLORIDE 104 mEq/L (98-107)
[2019-02-09] MEDS: LISINOPRIL 20MG TABLET PO SCH (09:00)
[2019-02-09] MEDS: CARVEDILOL 3.125 MG TABLET PO SCH ×2 (09:00→21:37)
[2019-02-09] MEDS: ASPIRIN 81MG EC TABLET PO SCH (09:09)
[2019-02-09] MEDS: APIXABAN 5 MG TABLET PO SCH ×2 (09:09→18:05)
[2019-02-09] MEDS: GUAIFENESIN 600MG ER TABLET PO SCH ×2 (09:09→21:37)
[2019-02-09] MEDS: POTASSIUM CHLORIDE 20MEQ TABLET SR PO SCH (09:10)
[2019-02-09 12:00] VITALS: BP 90/57
[2019-02-09 16:00] VITALS: BP 109/59
[2019-02-09] MEDS: MONTELUKAST SODIUM 10MG TABLET PO SCH (18:05)
[2019-02-09 20:00] VITALS: BP 116/69
[2019-02-09] MEDS: ATORVASTATIN CALCIUM 40MG TABLET PO SCH (21:37)
[2019-02-10] VITALS (7 sets, daily range): BP systolic 104–121; BP diastolic 50–67
[2019-02-10] MEDS: IPRATROPIUM/ALBUTEROL 0.5-3(2.5)MG/3ML NEB HHN SCH ×6 (00:40→21:47)
[2019-02-10] MEDS: METHYLPREDNISOLONE SOD SUCC 40 MG/ML VIAL IV SCH ×3 (04:19→20:38)
[2019-02-10] MEDS: BLOOD SUGAR DIAGNOSTIC STRIP TEST SCH ×4 (06:11→20:30)
[2019-02-10] MEDS: FUROSEMIDE 40MG/4ML VIAL IVP SCH ×2 (06:17→17:28)
[2019-02-10] MEDS: INSULIN LISPRO 100 UNITS/ML SUBCUT SCH ×4 (06:20→20:42)
[2019-02-10 07:13] LABS: HEMATOCRIT. 43.3 % (42.0-52.0); HEMOGLOBIN. 13.9 g/dL (14.0-18.0); MEAN CORPUSCULAR HEMOGLOBIN 27.6 pg (28.0-32.0); MEAN CORPUSCULAR VOLUME 86.2 fL (80.0-94.0); MEAN PLATELET VOLUME 9.3 fl (7.4-10.4); PLATELET 192 x1000/uL (130-400); RED BLOOD CELL COUNT 5.02 mill/uL (4.7-6.1); RED CELL DISTRIBUTION WIDTH 22.6 % (11.6-14.6)
[2019-02-10 07:37] LABS: CHLORIDE 100 mEq/L (98-107)
[2019-02-10] MEDS: POTASSIUM CHLORIDE 20MEQ TABLET SR PO SCH (08:35)
[2019-02-10] MEDS: APIXABAN 5 MG TABLET PO SCH ×2 (08:35→17:27)
[2019-02-10] MEDS: ASPIRIN 81MG EC TABLET PO SCH (08:36)
[2019-02-10] MEDS: LISINOPRIL 20MG TABLET PO SCH (08:36)
[2019-02-10] MEDS: GUAIFENESIN 600MG ER TABLET PO SCH ×2 (08:36→20:38)
[2019-02-10] MEDS: CARVEDILOL 3.125 MG TABLET PO SCH ×2 (08:36→20:29)
[2019-02-10] MEDS: BUDESONIDE 0.5MG/2ML NEB HHN SCH ×2 (10:06→21:47)
[2019-02-10 13:40] LABS: PLATELET ESTIMATE NORMAL
[2019-02-10] MEDS: MONTELUKAST SODIUM 10MG TABLET PO SCH (17:27)
[2019-02-10] MEDS ORDERED: LISI-604 PO (19:16)
[2019-02-10] MEDS ORDERED: ASPI-1393 MT (19:16)
[2019-02-10] MEDS ORDERED: MONT10TA21 PO (19:16)
[2019-02-10] MEDS ORDERED: MED4 MT (19:16)
[2019-02-10] MEDS ORDERED: TUSSL MT (19:16)
[2019-02-10] MEDS ORDERED: LIP40 PO (19:16)
[2019-02-10] MEDS ORDERED: LANTUSUD SUBCUT (19:16)
[2019-02-10] MEDS: ATORVASTATIN CALCIUM 40MG TABLET PO SCH (20:38)
[2019-02-10] MEDS: INSULIN GLARGINE UD 100 UNITS/ML SYR SUBCUT SCH (22:14)
[2019-02-11] VITALS: BP 115/60
[2019-02-11] MEDS: IPRATROPIUM/ALBUTEROL 0.5-3(2.5)MG/3ML NEB HHN SCH ×5 (01:30→16:48)
[2019-02-11 04:00] VITALS: BP_SYST 110; BP_SYST 118; BP_DIAS 65
[2019-02-11] MEDS: METHYLPREDNISOLONE SOD SUCC 40 MG/ML VIAL IV SCH ×2 (04:50→12:30)
[2019-02-11] MEDS: BLOOD SUGAR DIAGNOSTIC STRIP TEST SCH ×3 (05:50→16:53)
[2019-02-11] MEDS: INSULIN LISPRO 100 UNITS/ML SUBCUT SCH ×3 (06:12→17:05)
[2019-02-11] MEDS: FUROSEMIDE 40MG/4ML VIAL IVP SCH ×2 (06:13→16:53)
[2019-02-11 08:00] VITALS: BP 124/62
[2019-02-11] MEDS: BUDESONIDE 0.5MG/2ML NEB HHN SCH (08:39)
[2019-02-11] MEDS: APIXABAN 5 MG TABLET PO SCH ×2 (08:53→16:53)
[2019-02-11] MEDS: POTASSIUM CHLORIDE 20MEQ TABLET SR PO SCH (08:53)
[2019-02-11] MEDS: ASPIRIN 81MG EC TABLET PO SCH (08:53)
[2019-02-11] MEDS: GUAIFENESIN 600MG ER TABLET PO SCH (08:53)
[2019-02-11] MEDS: LISINOPRIL 20MG TABLET PO SCH (08:54)
[2019-02-11] MEDS: CARVEDILOL 3.125 MG TABLET PO SCH (09:00)
[2019-02-11] MEDS: INSULIN GLARGINE UD 100 UNITS/ML SYR SUBCUT SCH (09:22)
[2019-02-11 12:00] VITALS: BP 98/72
[2019-02-11] MEDS ORDERED: BENZONATATE 100MG CAPSULE PO PRN (13:00)
[2019-02-11 16:00] VITALS: BP 119/66
[2019-02-11] MEDS: MONTELUKAST SODIUM 10MG TABLET PO SCH (16:53)
[2019-02-11 18:51] VITALS: BP 119/66
== END 2019-02-11 19:19 | disposition home or self-care (01) | DRG 291 ==
LOC: ER 09:53 → 5WST 11:00 → EDBEDREQ 11:19 → ENRESERV 12:02
PROVIDERS: ADMIT Internal Medicine; ATTEND Internal Medicine
DX: I50.23 Acute on chronic systolic (congestive) heart failure (principal); J96.00 Acute respiratory failure, unspecified whether with hypoxia or hypercapnia; I42.0 Dilated cardiomyopathy; J20.9 Acute bronchitis, unspecified; J42 Unspecified chronic bronchitis; I11.0 Hypertensive heart disease with heart failure; I25.5 Ischemic cardiomyopathy; E11.65 Type 2 diabetes mellitus with hyperglycemia; Z95.810 Presence of automatic (implantable) cardiac defibrillator; Z95.1 Presence of aortocoronary bypass graft; E66.9 Obesity, unspecified; E78.5 Hyperlipidemia, unspecified; K76.0 Fatty (change of) liver, not elsewhere classified
CPT/HCPCS: 36415; 71045; 80048; 82962; 83605; 83880; 84145; 84484; 93005; 94640; 94644; 96374; 99285; J1650; J1815; J1940; J2920; J7611; J7620; J7626

== ENCOUNTER 2019-02-23 08:14 | Inpatient (IN) | payer OTHER, MEDICAID ==
[~2019-02-23] VITALS: Ht 165.1 cm; Wt 82.1 kg
[~2019-02-23 08:14] MED LIST changes: +ASPI-1393 MT; +LANTUSUD SUBCUT; -LEVO750T46 MT; +LIP40 PO; +LISI-604 PO; -LOSA25TA3 PO; +MED4 MT; +MONT10TA21 PO; -P20 MT; +TUSSL MT
[2019-02-23] MEDS ORDERED: NITROGLYCERIN OINT 1GM/INCH UDPKT TD ONE (08:30)
[2019-02-23] MEDS ORDERED: FUROSEMIDE 40MG/4ML VIAL IV ONE (08:30)
[2019-02-23 08:56] LABS: BG BASE EXCESS 1.8 mmol/L (-2.0-2.0); BG CARBOXYHEMOGLOBIN 0.9 % (0.5-1.5); BG DEOXYHEMOGLOBIN 0.1 % (0.0-5.0); BG FRACTION INSPIRED OXYGEN 100; BG HCO3 ACT 29.9 mmol/L (22.0-26.0); BG METHEMOGLOBIN 0.2 % (0.0-1.5); BG OXYGEN SATURATION 99.9 % (92.0-98.5); BG OXYHEMOGLOBIN 98.8 % (94.0-97.0); BG PCO2 61.8 mmHg (35.0-45.0); BG PH 7.303 (7.350-7.450); BG PO2 549.8 mmHg (75.0-100.0); BG SAMPLE SITE RIGHT BRACHIAL; BG TOTAL HEMOGLOBIN 14.9 g/dL (12.0-18.0); BG VENT MODE MASK - NRB
[2019-02-23 09:15] LABS: BASOPHILS % 0.7 % (0.0-2.0); EOSINOPHILS % 3.5 % (0.0-5.0); HEMATOCRIT. 45.8 % (42.0-52.0); HEMOGLOBIN. 14.6 g/dL (14.0-18.0); LYMPHOCYTES % 12.5 % (20.0-50.0); MEAN CORPUSCULAR HEMOGLOBIN 28.4 pg (28.0-32.0); MEAN CORPUSCULAR VOLUME 88.9 fL (80.0-94.0); MEAN PLATELET VOLUME 9.1 fl (7.4-10.4); MONOCYTES % 9.5 % (2.0-8.0); NEUTROPHILS % 73.8 % (40.0-76.0); PLATELET 127 x1000/uL (130-400); RED BLOOD CELL COUNT 5.15 mill/uL (4.7-6.1); RED CELL DISTRIBUTION WIDTH 21.5 % (11.6-14.6)
[2019-02-23 09:17] LABS: CHLORIDE 107 mEq/L (98-107)
[2019-02-23] MEDS ORDERED: IPRATROPIUM/ALBUTEROL 0.5-3(2.5)MG/3ML NEB HHN ONE (09:30)
[2019-02-23] MEDS ORDERED: METHYLPREDNISOLONE SOD SUCC 125 MG/2 ML VIAL IV ONE (09:30)
[2019-02-23 09:35] LABS: INR 1.1; PROTHROMBIN TIME 11.6 sec (9.6-11.0)
[2019-02-23] MEDS ORDERED: ASPIRIN 81MG TABLET PO ONE (09:45)
[2019-02-23] MEDS ORDERED: ENOXAPARIN 40MG/0.4ML SYR SUBCUT SCH (10:00)
[2019-02-23] MEDS ORDERED: MAGNESIUM/ALUMINUM HYDROXIDE/SIMETHICONE 30ML UDC PO PRN (10:00)
[2019-02-23] MEDS ORDERED: ACETAMINOPHEN 325MG TABLET PO PRN (10:00)
[2019-02-23] MEDS ORDERED: ONDANSETRON HCL 4MG/2ML INJ IV PRN (10:00)
[2019-02-23] MEDS ORDERED: HYDROCODONE/ACETAMINOPHEN 5/325MG TABLET PO PRN (10:00)
[2019-02-23] MEDS ORDERED: DOCUSATE SODIUM 100MG CAPSULE PO PRN (10:00)
[2019-02-23] MEDS ORDERED: IPRATROPIUM/ALBUTEROL 0.5-3(2.5)MG/3ML NEB INH PRN (10:00)
[2019-02-23] MEDS ORDERED: CLONIDINE 0.1MG TABLET PO PRN (10:00)
[2019-02-23] MEDS ORDERED: GUAIFENESIN 200MG/10ML SUGAR FREE UDC PO PRN (10:00)
[2019-02-23] MEDS ORDERED: DIPHENHYDRAMINE 50MG/ML VIAL IV PRN (10:00)
[2019-02-23 10:33] LABS: PHOSPHORUS 4.3 mg/dL (2.5-4.9)
[2019-02-23] MEDS: NITROGLYCERIN OINT 1GM/INCH UDPKT TD SCH ×2 (12:00→22:00)
[2019-02-23] MEDS ORDERED: APIXABAN 5 MG TABLET PO SCH (15:00)
[2019-02-23 15:26] VITALS: BP 129/71
[2019-02-23 15:37] VITALS: BP 129/72
[2019-02-23] MEDS: METHYLPREDNISOLONE SOD SUCC 40 MG/ML VIAL IV SCH (17:50)
[2019-02-23] MEDS: FUROSEMIDE 40MG/4ML VIAL IV SCH (17:50)
[2019-02-23 18:05] LABS: CREATINE KINASE MB FRACTION 3.2 ng/mL (0.5-3.6)
[2019-02-23] MEDS ORDERED: RIVA20TA PO (19:45)
[2019-02-23] MEDS ORDERED: METO100T16 PO (19:47)
[2019-02-23] MEDS ORDERED: FURO20TA4 PO (19:55)
[2019-02-23] MEDS ORDERED: LOSA25TA26 PO (19:55)
[2019-02-23 20:00] VITALS: BP 109/74
[2019-02-23] MEDS: IPRATROPIUM/ALBUTEROL 0.5-3(2.5)MG/3ML NEB HHN SCH (20:53)
[2019-02-23] MEDS: BUDESONIDE 0.5MG/2ML NEB HHN SCH (20:53)
[2019-02-23] MEDS: ATORVASTATIN CALCIUM 40MG TABLET PO SCH (21:00)
[2019-02-23] MEDS: APIXABAN 5 MG TABLET PO SCH (21:01)
[2019-02-23] MEDS: AMLODIPINE 2.5MG TABLET PO SCH (21:01)
[2019-02-23 22:00] VITALS: BP 88/46
[2019-02-23 23:22] LABS: CREATINE KINASE MB FRACTION 2.7 ng/mL (0.5-3.6)
[2019-02-24] VITALS (14 sets, daily range): BP systolic 106–145; BP diastolic 49–87
[2019-02-24] MEDS: IPRATROPIUM/ALBUTEROL 0.5-3(2.5)MG/3ML NEB HHN SCH ×6 (00:13→20:53)
[2019-02-24] MEDS ORDERED: DEXTROSE 50% WATER 50ML SYRINGE IV PRN (00:30)
[2019-02-24] MEDS: BLOOD SUGAR DIAGNOSTIC STRIP TEST SCH ×5 (01:00→21:59)
[2019-02-24] MEDS ORDERED: INSULIN LISPRO 100 UNITS/ML SUBCUT SCH (01:00)
[2019-02-24 08:03] LABS: BASOPHILS % 1.4 % (0.0-2.0); LYMPHOCYTES % 8.7 % (20.0-50.0); MEAN CORPUSCULAR HEMOGLOBIN 29.2 pg (28.0-32.0); MEAN CORPUSCULAR VOLUME 87.7 fL (80.0-94.0); MEAN PLATELET VOLUME 9.5 fl (7.4-10.4); MONOCYTES % 9.1 % (2.0-8.0); NEUTROPHILS % 80.8 % (40.0-76.0); PLATELET 120 x1000/uL (130-400); RED BLOOD CELL COUNT 4.79 mill/uL (4.7-6.1); RED CELL DISTRIBUTION WIDTH 21.3 % (11.6-14.6)
[2019-02-24 08:32] LABS: CHLORIDE 98 mEq/L (98-107)
[2019-02-24 08:43] LABS: LDL CHOLESTEROL 57 mg/dL (5-100)
[2019-02-24 08:45] LABS: HDL CHOLESTEROL 48 mg/dL (40-59)
[2019-02-24 08:56] LABS: BG CARBOXYHEMOGLOBIN 0.8 % (0.5-1.5); BG DEOXYHEMOGLOBIN 0.8 % (0.0-5.0); BG FRACTION INSPIRED OXYGEN 32; BG METHEMOGLOBIN 0.4 % (0.0-1.5); BG OXYGEN SATURATION 99.2 % (92.0-98.5); BG PH 7.347 (7.350-7.450); BG PO2 173.3 mmHg (75.0-100.0); BG SAMPLE SITE RIGHT RADIAL; BG TOTAL HEMOGLOBIN 14.5 g/dL (12.0-18.0); BG VENT MODE NASAL CANNULA
[2019-02-24] MEDS: INSULIN LISPRO 100 UNITS/ML SUBCUT SCH ×4 (09:46→21:59)
[2019-02-24] MEDS: FUROSEMIDE 40MG/4ML VIAL IV SCH ×2 (09:59→18:53)
[2019-02-24] MEDS: METHYLPREDNISOLONE SOD SUCC 40 MG/ML VIAL IV SCH ×2 (09:59→18:54)
[2019-02-24] MEDS: APIXABAN 5 MG TABLET PO SCH ×2 (10:00→21:06)
[2019-02-24] MEDS: AMLODIPINE 2.5MG TABLET PO SCH ×2 (10:03→21:07)
[2019-02-24] MEDS ORDERED: RACEPINEPHRINE 2.25% 0.5ML NEB VIAL HHN NR (12:30)
[2019-02-24] MEDS ORDERED: METHYLPREDNISOLONE SOD SUCC 125 MG/2 ML VIAL IV NR (12:30)
[2019-02-24] MEDS: BUDESONIDE 0.5MG/2ML NEB HHN SCH ×2 (12:45→20:54)
[2019-02-24 13:34] LABS: BG BASE EXCESS 2.2 mmol/L (-2.0-2.0); BG CARBOXYHEMOGLOBIN 0.8 % (0.5-1.5); BG FRACTION INSPIRED OXYGEN 40; BG HCO3 ACT 28.4 mmol/L (22.0-26.0); BG METHEMOGLOBIN 0.4 % (0.0-1.5); BG OXYHEMOGLOBIN 97.8 % (94.0-97.0); BG PCO2 50.2 mmHg (35.0-45.0); BG PO2 147.3 mmHg (75.0-100.0); BG SAMPLE SITE RIGHT RADIAL; BG TOTAL HEMOGLOBIN 14.6 g/dL (12.0-18.0); BG VENT MODE NASAL CANNULA
[2019-02-24] MEDS ORDERED: INSULIN LISPRO 100 UNITS/ML SUBCUT NR ×2 (18:00→23:15)
[2019-02-24] MEDS: ATORVASTATIN CALCIUM 40MG TABLET PO SCH (21:06)
[2019-02-24] MEDS ORDERED: INSULIN GLARGINE UD 100 UNITS/ML SYR SUBCUT SCH (22:00)
[2019-02-24] MEDS: NITROGLYCERIN OINT 1GM/INCH UDPKT TD SCH (23:26)
[2019-02-25] VITALS (12 sets, daily range): BP systolic 91–126; BP diastolic 50–73
[2019-02-25] MEDS: METHYLPREDNISOLONE SOD SUCC 40 MG/ML VIAL IV SCH ×3 (00:35→17:01)
[2019-02-25] MEDS: IPRATROPIUM/ALBUTEROL 0.5-3(2.5)MG/3ML NEB HHN SCH ×6 (00:43→22:10)
[2019-02-25] MEDS: BUDESONIDE 0.5MG/2ML NEB HHN SCH ×3 (03:50→22:10)
[2019-02-25] MEDS: NITROGLYCERIN OINT 1GM/INCH UDPKT TD SCH ×3 (06:04→21:34)
[2019-02-25 06:55] LABS: HEMATOCRIT. 38.9 % (42.0-52.0); HEMOGLOBIN. 12.8 g/dL (14.0-18.0); MEAN CORPUSCULAR HEMOGLOBIN 28.9 pg (28.0-32.0); MEAN CORPUSCULAR VOLUME 87.7 fL (80.0-94.0); MEAN PLATELET VOLUME 9.6 fl (7.4-10.4); PLATELET 117 x1000/uL (130-400); RED BLOOD CELL COUNT 4.43 mill/uL (4.7-6.1); RED CELL DISTRIBUTION WIDTH 21.5 % (11.6-14.6)
[2019-02-25 07:03] LABS: CHLORIDE 94 mEq/L (98-107)
[2019-02-25] MEDS: INSULIN LISPRO 100 UNITS/ML SUBCUT SCH ×7 (08:00→21:35)
[2019-02-25 08:56] LABS: PLATELET ESTIMATE SLIGHTLY DECREASED
[2019-02-25] MEDS: FUROSEMIDE 40MG/4ML VIAL IV SCH ×2 (09:20→17:01)
[2019-02-25] MEDS: AMLODIPINE 2.5MG TABLET PO SCH ×2 (09:21→20:32)
[2019-02-25] MEDS: APIXABAN 5 MG TABLET PO SCH ×2 (09:21→20:31)
[2019-02-25] MEDS: BLOOD SUGAR DIAGNOSTIC STRIP TEST SCH ×4 (09:33→20:38)
[2019-02-25 09:48] LABS: BG BASE EXCESS 3.6 mmol/L (-2.0-2.0); BG CARBOXYHEMOGLOBIN 0.3 % (0.5-1.5); BG DEOXYHEMOGLOBIN 1.2 % (0.0-5.0); BG FRACTION INSPIRED OXYGEN 36; BG HCO3 ACT 30.3 mmol/L (22.0-26.0); BG METHEMOGLOBIN 0.4 % (0.0-1.5); BG OXYGEN SATURATION 98.8 % (92.0-98.5); BG OXYHEMOGLOBIN 98.1 % (94.0-97.0); BG PCO2 54.6 mmHg (35.0-45.0); BG PH 7.362 (7.350-7.450); BG PO2 146.3 mmHg (75.0-100.0); BG SAMPLE SITE RIGHT BRACHIAL; BG TOTAL HEMOGLOBIN 13.7 g/dL (12.0-18.0); BG VENT MODE NASAL CANNULA
[2019-02-25] MEDS: ATORVASTATIN CALCIUM 40MG TABLET PO SCH (20:31)
[2019-02-25] MEDS: BENZONATATE 100MG CAPSULE PO PRN (21:34)
[2019-02-25] MEDS ORDERED: INSULIN GLARGINE UD 100 UNITS/ML SYR SUBCUT SCH (22:00)
[2019-02-26] VITALS (11 sets, daily range): BP systolic 108–134; BP diastolic 58–70
[2019-02-26] MEDS: IPRATROPIUM/ALBUTEROL 0.5-3(2.5)MG/3ML NEB HHN SCH ×5 (00:18→16:20)
[2019-02-26] MEDS: METHYLPREDNISOLONE SOD SUCC 40 MG/ML VIAL IV SCH ×2 (00:21→08:17)
[2019-02-26] MEDS: NITROGLYCERIN OINT 1GM/INCH UDPKT TD SCH ×2 (05:04→14:07)
[2019-02-26 07:08] LABS: HEMATOCRIT. 39.2 % (42.0-52.0); HEMOGLOBIN. 12.9 g/dL (14.0-18.0); MEAN CORPUSCULAR HEMOGLOBIN 28.8 pg (28.0-32.0); MEAN CORPUSCULAR VOLUME 87.7 fL (80.0-94.0); MEAN PLATELET VOLUME 10.2 fl (7.4-10.4); PLATELET 100 x1000/uL (130-400); RED BLOOD CELL COUNT 4.46 mill/uL (4.7-6.1); RED CELL DISTRIBUTION WIDTH 22.1 % (11.6-14.6)
[2019-02-26] MEDS: BLOOD SUGAR DIAGNOSTIC STRIP TEST SCH ×3 (07:30→17:31)
[2019-02-26 08:08] LABS: CHLORIDE 94 mEq/L (98-107)
[2019-02-26] MEDS: FUROSEMIDE 40MG/4ML VIAL IV SCH ×2 (08:17→17:18)
[2019-02-26] MEDS: AMLODIPINE 2.5MG TABLET PO SCH (08:18)
[2019-02-26] MEDS: APIXABAN 5 MG TABLET PO SCH (08:18)
[2019-02-26] MEDS: BENZONATATE 100MG CAPSULE PO PRN (08:29)
[2019-02-26] MEDS: INSULIN LISPRO 100 UNITS/ML SUBCUT SCH ×6 (08:31→17:30)
[2019-02-26] MEDS: BUDESONIDE 0.5MG/2ML NEB HHN SCH (08:35)
[2019-02-26] MEDS ORDERED: INSULIN LISPRO 100 UNITS/ML SUBCUT NR (15:45)
[2019-02-26] MEDS ORDERED: PREDNISONE 20MG TABLET PO SCH (17:00)
[2019-02-26] MEDS ORDERED: THROAT LOZENGES-BENZOCAINE/MENTH/CETYLPYRD CL LOZENGES MM PRN (18:00)
[2019-02-26] MEDS ORDERED: METFORMIN HCL 500MG TABLET PO SCH (18:00)
[2019-02-26 18:33] LABS: PLATELET ESTIMATE DECREASED
[2019-02-26] MEDS ORDERED: INSULIN GLARGINE UD 100 UNITS/ML SYR SUBCUT SCH (22:00)
== END 2019-02-26 18:55 | disposition home or self-care (01) | DRG 189 ==
LOC: ER 08:14 → EDBEDREQSVC 09:39 → EDBEDREQ 09:49 → CANRESERV 10:20 → ENRESERV 10:20 → EDBEDREQSVC 11:08 → ENRESERV 12:41 → CANRESERV 12:46 → EDBEDREQSVC 12:59 → ENRESERV 13:27 → 5EST 14:20
PROVIDERS: ADMIT Internal Medicine; ATTEND Internal Medicine
PROC: 5A09357 Assistance with Respiratory Ventilation, Less than 24 Consecutive Hours, Continuous Positive Airway Pressure (ICD-10-PCS; principal; 2019-02-23)
PROC: 5A09357 Assistance with Respiratory Ventilation, Less than 24 Consecutive Hours, Continuous Positive Airway Pressure (ICD-10-PCS; 2019-02-24)
PROC: 5A09357 Assistance with Respiratory Ventilation, Less than 24 Consecutive Hours, Continuous Positive Airway Pressure (ICD-10-PCS; 2019-02-25)
PROC: 5A09357 Assistance with Respiratory Ventilation, Less than 24 Consecutive Hours, Continuous Positive Airway Pressure (ICD-10-PCS; 2019-02-26)
DX: J96.21 Acute and chronic respiratory failure with hypoxia (principal); I50.23 Acute on chronic systolic (congestive) heart failure; J44.1 Chronic obstructive pulmonary disease with (acute) exacerbation; E87.2 Acidosis; I31.3 Pericardial effusion (noninflammatory); I48.1 Persistent atrial fibrillation; I48.92 Unspecified atrial flutter; N17.9 Acute kidney failure, unspecified; I42.0 Dilated cardiomyopathy; I11.0 Hypertensive heart disease with heart failure; J96.22 Acute and chronic respiratory failure with hypercapnia; I48.0 Paroxysmal atrial fibrillation; E11.65 Type 2 diabetes mellitus with hyperglycemia; D69.6 Thrombocytopenia, unspecified; D72.821 Monocytosis (symptomatic); E78.5 Hyperlipidemia, unspecified; T38.0X5A Adverse effect of glucocorticoids and synthetic analogues, initial encounter; I25.5 Ischemic cardiomyopathy; I08.1 Rheumatic disorders of both mitral and tricuspid valves; K76.0 Fatty (change of) liver, not elsewhere classified; E66.9 Obesity, unspecified; E78.00 Pure hypercholesterolemia, unspecified; I25.10 Atherosclerotic heart disease of native coronary artery without angina pectoris; Z79.01 Long term (current) use of anticoagulants; Z79.4 Long term (current) use of insulin; Z82.49 Family history of ischemic heart disease and other diseases of the circulatory system; Z95.1 Presence of aortocoronary bypass graft; Z95.810 Presence of automatic (implantable) cardiac defibrillator; Y92.89 Other specified places as the place of occurrence of the external cause; Z68.30 Body mass index [BMI] 30.0-30.9, adult; Z79.899 Other long term (current) drug therapy; Z79.82 Long term (current) use of aspirin
CPT/HCPCS: 36415; 36600; 71045; 80048; 80061; 82375; 82550; 82553; 82805; 82962; 83036; 83605; 83735; 83880; 84100; 84443; 84484; 93005; 93970; 94640; 94660; 96374; 96375; 97110; 97116; 97162; 97166; 99291; J1815; J1940; J2920; J2930; J7512; J7620; J7626